=== PATIENT | female | born 1980 | race Two or more races ===

== ENCOUNTER 2017-12-19 15:25 | Inpatient (IN) | payer OTHER ==
--- NOTE | 2017-12-19 16:38 | PDOC ---
History of Present Illness - General History Source: Patient Exam Limitations: Intoxication - History of Present Illness Initial Comments: 12/19/17 17:05 The patient is a 37 year old female, with a significant past medical history of polysubstance abuse (Alcohol[hard liquor] , Cocaine, and Marijuana) and pancreatitis, who presents to the emergency department for intoxication since earlier today. The patient reports multiple emetic episodes, bloody in nature, which she describes as coffee grounds. Patient reports associated abdominal pain , nausea, and constipation. Patient states her last drink was this morning. Patient reports she has been on Methadone, and would like to go to detox. Patient denies any history of esophageal varices or upper GI bleeds. Patient denies any fever, chills, cough, or headache. Patient reports she has been sleeping a lot during the past couple of days. She denies any chest pain, shortness of breath, diaphoresis, or palpitations. She denies any dysuria, hematuria, frequency, or urgency. Allergies: NKDA Past Surgical History: Hip replacements Social History: ETOH abuse. Methadone and Marijuana use. <Robbie Cabrera - Last Filed: 12/19/17 17:07> <Nicole Melendez - Last Filed: 12/19/17 20:15> - General Chief Complaint: Alcohol intoxication Stated Complaint: Alcohol intoxication Time Seen by Provider: 12/19/17 16:38 Past History <Robbie Cabrera - Last Filed: 12/19/17 17:07> - Past Medical History Anemia: No Asthma: No Cancer: No Cardiac Disorders: No CVA: No COPD: No CHF: No Dementia: No Diabetes: No GI Disorders: No Disorders: No HTN: No Hypercholesterolemia: No Kidney Stones: No Liver Disease: No Seizures: No Thyroid Disease: No - Surgical History Abdominal Surgery: No Appendectomy: No Cardiac Surgery: No Cholecystectomy: No Lung Surgery: No Neurologic Surgery: No Orthopedic Surgery: Yes (s/p left hip surgery in 2011) - Reproductive History PID: No - Immunization History Immunization Up to Date: No - Suicide/Smoking/Psychosocial Hx Smoking History: Current every day smoker Have you smoked in the past 12 months: Yes Number of Cigarettes Smoked Daily: 20 Cigars Per Day: 0 Information on smoking cessation initiated: No 'Breaking Loose' booklet given: 07/12/13 Hx Alcohol Use: No Drug/Substance Use Hx: No Substance Use Type: Alcohol, Cocaine, Marijuana, Prescribed Hx Substance Use Treatment: Yes <Nicole Melendez - Last Filed: 12/19/17 20:15> - Past Medical History Allergies/Adverse Reactions: Allergies Allergy/AdvReac Type Severity Reaction Status Date / Time No Known Allergies Allergy Verified 12/19/17 15:55 Home Medications: Ambulatory Orders NK [No Known Home Medication] 12/19/17 Review of Systems - Review of Systems Able to Perform ROS?: Yes Comments:: 12/19/17 17:07 GENERAL/CONSTITUTIONAL: +Intoxicated. No fever or chills. No weakness. HEAD, EYES, EARS, NOSE AND THROAT: No change in vision. No ear pain or discharge. No sore throat. CARDIOVASCULAR: No chest pain or shortness of breath. RESPIRATORY: +Hemoptysis. No cough or wheezing. GASTROINTESTINAL: +Abdominal pain, nausea, vomiting. No diarrhea or constipation. GENITOURINARY: No dysuria, frequency, or change in urination. MUSCULOSKELETAL: No joint or muscle swelling or pain. No neck or back pain. SKIN: No rash NEUROLOGIC: No headache, vertigo, loss of consciousness, or change in strength/ sensation. ENDOCRINE: No increased thirst. No abnormal weight change. HEMATOLOGIC/LYMPHATIC: No anemia, easy bleeding, or history of blood clots. ALLERGIC/IMMUNOLOGIC: No hives or skin allergy. <Robbie Cabrera - Last Filed: 12/19/17 17:07> *Physical Exam - Vital Signs Last Vital Signs Temp Pulse Resp BP Pulse Ox 97.6 F 81 16 113/77 97 12/19/17 15:52 12/19/17 15:52 12/19/17 15:52 12/19/17 15:52 12/19/17 15:52 - Physical Exam Comments: 12/19/17 17:08 GENERAL: +Intoxicated, but awake, alert, and fully oriented, in no acute distress HEAD: No signs of trauma EYES: PERRLA, EOMI, sclera anicteric, conjunctiva clear ENT: +Tongue fasiculations. +Dry mucosa. Auricles normal inspection, hearing grossly normal, nares patent. NECK: Normal ROM, supple, no lymphadenopathy, JVD, or masses LUNGS: Breath sounds equal, clear to auscultation bilaterally. No wheezes, and no crackles HEART: Regular rate and rhythm, normal S1 and S2, no murmurs, rubs or gallops ABDOMEN: Soft, nontender, normoactive bowel sounds. No guarding, no rebound. No masses EXTREMITIES: Normal range of motion, no edema. No clubbing or cyanosis. No cords, erythema, or tenderness NEUROLOGICAL: Cranial nerves II through XII grossly intact. Normal speech, normal gait SKIN: Warm, Dry, normal turgor, no rashes or lesions noted. <Robbie Cabrera - Last Filed: 12/19/17 17:07> - Vital Signs Last Vital Signs Temp Pulse Resp BP Pulse Ox 97.6 F 81 16 113/77 97 12/19/17 15:52 12/19/17 15:52 12/19/17 15:52 12/19/17 15:52 12/19/17 15:52 <Nicole Melendez - Last Filed: 12/19/17 20:15> ED Treatment Course - LABORATORY CBC & Chemistry Diagram: 12/19/17 17:30 12/19/17 17:30 <Nicole Melendez - Last Filed: 12/19/17 20:15> Medical Decision Making - Medical Decision Making 12/19/17 19:44 Pt presents to the ED complaining of epigastric pain, nausea and vomiting. History of chronic ETOH abuse. + tenderness in the epigastrium on my exam. Labs checked to evaluate for alcoholic hepatitis, biliary disease and pancreatitis, and show elevated lipase consistent with pancreatitis. Will admit to medicine for pancreatitis. Will check RUQ US. <Nicole Melendez - Last Filed: 12/19/17 20:15> *DC/Admit/Observation/Transfer - Attestations Scribe Attestion: 12/19/17 17:05 Documentation prepared by Robbie Cabrera, acting as medical or surgical instrument maker for Nicole Melendez MD. <Robbie Cabrera - Last Filed: 12/19/17 17:07> - Discharge Dispostion Admit: Yes <Nicole Melendez - Last Filed: 12/19/17 20:15> Diagnosis at time of Disposition: Pancreatitis Qualifiers: Chronicity: acute Pancreatitis type: alcohol induced Acute pancreatitis complication: unspecified Qualified Code(s): K85.20 - Alcohol induced acute pancreatitis without necrosis or infection - Discharge Dispostion Condition at time of disposition: Good - Referrals Referrals: ON STAFF,NOT [Primary Care Provider] - - Patient Instructions - Post Discharge Activity
[2017-12-19] MEDS ORDERED: chlordiazePOXIDE HCL 25 MG CAPSULE PO ONE (17:02)
[2017-12-19] MEDS ORDERED: chlordiazePOXIDE HCL 25 MG CAPSULE ONE (17:31)
[2017-12-19 17:38] LABS: EOS % 0.1 % (0-4.5); HEMATOCRIT 50.1 % (32.4-45.2); HEMOGLOBIN 16.5 GM/dL (10.7-15.3); LYMPH % 41.7 % (8-40); MCH 30.6 pg (25.7-33.7); MCHC 32.9 g/dl (32.0-36.0); MEAN CELL VOLUME 92.9 fl (80-96); MEAN PLT VOLUME 8.6 fl (7.5-11.1); MONO % 7.8 % (3.8-10.2); NEUT % 49.4 % (42.8-82.8); PLATELET COUNT 137 K/MM3 (134-434); RBC 5.39 M/mm3 (3.60-5.2); RDW 14.6 % (11.6-15.6); WHITE BLOOD COUNT 3.3 K/mm3 (4.0-10.0)
[2017-12-19 18:10] LABS: ALBUMIN 4.8 g/dl (3.4-5.0); ALK PHOS 114 U/L (45-117); ANION GAP 13 (8-16); BILIRUBIN,TOTAL 0.7 mg/dL (0.2-1.0); BLOOD UREA NITROGEN 9 mg/dL (7-18); CALCIUM 8.8 mg/dL (8.5-10.1); CHLORIDE 95 mmol/L (98-107); CO2 28 mmol/L (21-32); CREATININE 0.6 mg/dL (0.55-1.02); GLUCOSE,RANDOM 68 mg/dL (74-106); POTASSIUM 3.8 mmol/L (3.5-5.1); SGPT/ALT 144 U/L (12-78); SODIUM 136 mmol/L (136-145); TOT PROT 9.5 g/dl (6.4-8.2)
[2017-12-19 18:11] LABS: LIPASE 2053 U/L (73-393); SGOT/AST 503 U/L (15-37)
[2017-12-19] MEDS ORDERED: HYDROmorphone HCL CARPU-JECT 1 MG/1 ML DISP.SYRIN IVPUSH ONE (18:20)
--- NOTE | 2017-12-19 19:34 | PN ---
Teaching Attending Note Name of Resident: Fausto Zamora ATTENDING PHYSICIAN STATEMENT I saw and evaluated the patient. I reviewed the resident's note and discussed the case with the resident. I agree with the resident's findings and plan as documented. SUBJECTIVE: Sent from detox for intoxication and patient c/o abdominal pain, coffee ground vomitus and epigastric abdominal pain. OBJECTIVE: GEN: Alert and oriented times 3, anxious HEENT: PERRLA, EOMI, MMM CVS:RRR, no M/G/R LUNGS: CTA ABD: Soft, NT, BS+ Ext:nl rom, nl gait Neuro:Cn2-12 intact CBCD WBC 3.3 K/mm3 (4.0-10.0) L D 12/19/17 17:30 RBC 5.39 M/mm3 (3.60-5.2) H D 12/19/17 17:30 Hgb 16.5 GM/dL (10.7-15.3) H D 12/19/17 17:30 Hct 50.1 % (32.4-45.2) H D 12/19/17 17:30 MCV 92.9 fl (80-96) 12/19/17 17:30 MCHC 32.9 g/dl (32.0-36.0) 12/19/17 17:30 RDW 14.6 % (11.6-15.6) 12/19/17 17:30 Plt Count 137 K/MM3 (134-434) D 12/19/17 17:30 MPV 8.6 fl (7.5-11.1) 12/19/17 17:30 CMP Sodium 136 mmol/L (136-145) 12/19/17 17:30 Potassium 3.8 mmol/L (3.5-5.1) 12/19/17 17:30 Chloride 95 mmol/L (98-107) L 12/19/17 17:30 Carbon Dioxide 28 mmol/L (21-32) 12/19/17 17:30 Anion Gap 13 (8-16) 12/19/17 17:30 BUN 9 mg/dL (7-18) 12/19/17 17:30 Creatinine 0.6 mg/dL (0.55-1.02) 12/19/17 17:30 Creat Clearance w eGFR > 60 (>60) 12/19/17 17:30 Random Glucose 68 mg/dL (74-106) L 12/19/17 17:30 Calcium 8.8 mg/dL (8.5-10.1) 12/19/17 17:30 Total Bilirubin 0.7 mg/dL (0.2-1.0) D 12/19/17 17:30 AST 503 U/L (15-37) H 12/19/17 17:30 ALT 144 U/L (12-78) H 12/19/17 17:30 Alkaline Phosphatase 114 U/L (45-117) 12/19/17 17:30 Total Protein 9.5 g/dl (6.4-8.2) H 12/19/17 17:30 Albumin 4.8 g/dl (3.4-5.0) 12/19/17 17:30 ASSESSMENT AND PLAN: Abdominal pain pancreatitis NPO, IVF Banana bag, Zofran, Morphine 2mg PRN,, patient counselled on alcohol cessation. Continue care as per H&P.
[2017-12-19] MEDS ORDERED: SODIUM CHLORIDE 1,000 ML IV SCH (20:30)
--- NOTE | 2017-12-19 20:44 | HP ---
CHIEF COMPLAINT: " sent from [facility] for evaluation of abdominal pain" PCP: Name unknown, goes to [address] HISTORY OF PRESENT ILLNESS: Patient is a 37 year old female sent from [facility] for evaluation of abdominal pain. As per the patient, she went to [facility] for alcohol detox. Complaints of abdominal pain x 2 days, epigastric, burning in nature, 9/10 in intensity, non radiating. It was associated with nausea and few episodes of vomiting. Vomitus contained mainly food particles, non bloody, non projectile. Patient reports she actively drinks alcohol, last drink was this morning 1/2 a bottle of vodka. Also states that she has had 4 episodes of pancreatitis, last pancreatitis was in 2017. Denies chest pain, sob, cough, palpitation, fever, chills, rigors, sweating. Bowel/Bladder habit normal. Sleep/Appetite disturbed. As per [facility] notes (12/19/17) Currently she is on Methadone 40mg ER course was notable for: (1) Afebrile, hemodynamically stable, Lipase 2052, U tox positive for marijuana , benzo, methadone, alcohol level: 123 (2) Abdominal USG (3) Librium and Reglan Recent Travel: PAST MEDICAL HISTORY: opioid dependence. chronci alcoholism. cocaine dependence. cannabis dependence. bipolar disorder, h/o pancreatitis 4 times, ( heart attack x 2 as per the patient but unsure), Hypertension PAST SURGICAL HISTORY: (s/p left hip surgery in 2011) Social History: Smoking: Started smoking at age 17 yrs, active smoker Alcohol: Actively drinking, last drink was this morning 1/2 a bottle of vodka. Drugs: started smoking marijuana at age 12, actively smokes marijuana. Used to inhale cocaine (doesn't want to mention the last time she took) Family History: Non contributory Allergies No Known Allergies Allergy (Verified 12/19/17 15:55) HOME MEDICATIONS: Home Medications Medication Instructions Recorded NK [No Known Home Medication] 12/19/17 REVIEW OF SYSTEMS CONSTITUTIONAL: Absent: fever, chills, diaphoresis, generalized weakness, malaise, loss of appetite, weight change HEENT: Absent: rhinorrhea, nasal congestion, throat pain, throat swelling, difficulty swallowing, mouth swelling, ear pain, eye pain, visual changes CARDIOVASCULAR: Absent: chest pain, syncope, palpitations, irregular heart rate, lightheadedness , peripheral edema RESPIRATORY: Absent: cough, shortness of breath, dyspnea with exertion, orthopnea, wheezing, stridor, hemoptysis GASTROINTESTINAL: Present: abdominal pain, abdominal distension, nausea, vomiting Absent: diarrhea, constipation, melena, hematochezia GENITOURINARY: Absent: dysuria, frequency, urgency, hesitancy, hematuria, flank pain, genital pain MUSCULOSKELETAL: Absent: myalgia, arthralgia, joint swelling, back pain, neck pain SKIN: Absent: rash, itching, pallor HEMATOLOGIC/IMMUNOLOGIC: Absent: easy bleeding, easy bruising, lymphadenopathy, frequent infections ENDOCRINE: Absent: unexplained weight gain, unexplained weight loss, heat intolerance, cold intolerance NEUROLOGIC: Absent: headache, focal weakness or paresthesias, dizziness, unsteady gait, seizure, mental status changes, bladder or bowel incontinence PSYCHIATRIC: Absent: anxiety, depression, suicidal or homicidal ideation, hallucinations. PHYSICAL EXAMINATION Vital Signs - 24 hr 12/19/17 12/19/17 15:52 18:47 Temperature 97.6 F 98.6 F Pulse Rate 81 Pulse Rate [ 86 Left Apical] Respiratory 16 16 Rate Blood Pressure 113/77 Blood Pressure 139/69 [Left Arm] O2 Sat by Pulse 97 95 Oximetry (%) GENERAL: Patient is a young female, sleeping, arousable, Awake, alert, and fully oriented, in no acute distress. HEAD: Normal with no signs of trauma. EYES: EOM intact, no pallor or icterus. EARS, NOSE, THROAT: Ears normal. Dry mucous membranes. NECK: Supple. LUNGS: B/L Breath sounds equal, clear to auscultation bilaterally. No wheezes, and no crackles. No accessory muscle use. HEART: Regular rate and rhythm, normal S1 and S2 without murmur. ABDOMEN: Soft, tenderness in the epigastric area, guarding +, rigidity +, not distended, normoactive bowel sounds. No hepatomegaly or splenomegaly. MUSCULOSKELETAL: Normal range of motion at all joints. No bony deformities or tenderness. No CVA tenderness. UPPER EXTREMITIES: 2+ pulses, warm, well-perfused. No cyanosis. No clubbing. No peripheral edema. LOWER EXTREMITIES: 2+ pulses, warm, well-perfused. No calf tenderness. No peripheral edema. NEUROLOGICAL: No facial droop, Cranial nerves II-XII intact. Normal speech. Gait not observed. PSYCHIATRIC: Uncooperative, aggressive and angry. Poor eye contact. SKIN: Warm, dry, normal turgor, no rashes or lesions noted, normal capillary refill. Laboratory Results - last 24 hr 12/19/17 12/19/17 12/19/17 17:30 17:30 17:30 WBC 3.3 L D RBC 5.39 H D Hgb 16.5 H D Hct 50.1 H D MCV 92.9 MCH 30.6 MCHC 32.9 RDW 14.6 Plt Count 137 D MPV 8.6 Neutrophils % 49.4 Lymphocytes % 41.7 H D Monocytes % 7.8 Eosinophils % 0.1 D Basophils % 1.0 Sodium 136 Potassium 3.8 Chloride 95 L Carbon Dioxide 28 Anion Gap 13 BUN 9 Creatinine 0.6 Creat Clearance w eGFR > 60 Random Glucose 68 L Calcium 8.8 Total Bilirubin 0.7 D AST 503 H ALT 144 H Alkaline Phosphatase 114 Total Protein 9.5 H Albumin 4.8 Lipase 2053 H Beta HCG, Quant < 1.0 ASSESSMENT/PLAN: Patient is a 37 year old female with past medical history of Polysubstance abuse (opioid dependence, chronic alcoholism, h/o cocaine dependence; cannabis dependence; bipolar disorder not on meds, sent from [facility] for evaluation of abdominal pain. # Acute pancreatitis c/o epigastric pain, nausea, vomiting. H/O pancreatitis 4 times, last pancreatitis was on 2016. On arrival, she was hemodynamically stable, Lipase 2053 Admit in Med-Surg/Inpatient NPO IV NS @ 100 mls/hr IV Morphine 1mg Q4H PRN 1 banana bag to be given followed by NS @ 100mls.hr Abdominal USG: Small volume of sludge within the GB. No evidence of cholelithiasis or acute cholecystitis Dilated CBD: 8-9 mm with no significant Intrahepatic biliary ductal dilatation. Unclear if its due to acute pancreatitis or other pathology Mild dilatation of pancreatic duct measuring 3mm. Would consider CT abdomen or MRCP to evaluate further. # Alcohol intoxication: Alcohol level 431.8 No signs of withdrawal Librium protocol cannot be started due to elevated liver enzymes Ativan 2mg PO Q4H PRN and Ativan 2mg IV Q2H PRN for withdrawals # Elevated liver enzymes Likely due to alcohol abuse Avoid hepatotoxic drugs Repeat CMP in am. # Polysubstance abuse Urine toxicology positive for Methadone, benzo and Marijuana To start Methadone once its confirmed from [facility] Dr. Daley consult requested Once stable, to transfer to detox for further management # FEN IV NS @ 100mls/hr Electrolytes WNL NPO # Prophylaxis For DVT: On Heparin 5000 IU sq TID For GI: Not indicated # Code Status: Full Code # Dispo: Admitted in Med-Surg. Illness, Investigation and Plan of care explained to the patient. She verbalized understanding. Case discussed with Dr. Navarro. Visit type - Emergency Visit Emergency Visit: Yes ED Registration Date: 12/19/17 Care time: The patient presented to the Emergency Department on the above date and was hospitalized for further evaluation of their emergent condition. - New Patient This patient is new to me today: Yes Date on this admission: 12/19/17 - Critical Care Critical Care patient: No
[2017-12-19] MEDS ORDERED: FOLIC ACID INJECTION - 1 MG, THIAMINE HCL 100 MG, MULTIVIT INJECTION ADULT 10 ML in SOD... IVPB ONE (21:15)
[2017-12-19 21:29] LABS: COCAINE, UR NEGATIVE ng/ml (CUTOFF=300); OPIATES, URI NEGATIVE ng/ml (CUTOFF=300); PHENCYCLIDINE,URINE NEGATIVE ng/ml (CUTOFF=25); URINE AMPHETAMINES NEGATIVE ng/ml (CUTOFF=500); URINE BARBITURATES NEGATIVE ng/ml (CUTOFF=200)
[2017-12-19 21:31] LABS: METHADONE, UR POSITIVE ng/ml (CUTOFF=300); URINE BENZODIAZEPINES POSITIVE ng/ml (CUTOFF=200)
[2017-12-19 23:45] VITALS: BMI 18.9
[2017-12-19] MEDS: MORPHINE SULFATE 10 MG/1 ML *VIAL IVPUSH PRN (23:48)
[2017-12-20] MEDS ORDERED: METOCLOPRAMIDE HCL INJECTION 10 MG/2 ML VIAL IVPUSH ONE (01:36)
[2017-12-20] MEDS: MORPHINE SULFATE 10 MG/1 ML *VIAL IVPUSH PRN ×2 (03:56→07:56)
[2017-12-20] MEDS ORDERED: SODIUM CHLORIDE 1,000 ML IV SCH ×2 (04:00→11:29)
[2017-12-20] MEDS ORDERED: chlordiazePOXIDE HCL 25 MG CAPSULE PO PRN ×2 (04:05→10:35)
[2017-12-20] MEDS ORDERED: PNEUMOC 13-VAL CONJ-DIP CRM/PF 0.5 ML DISP.SYRIN IM ONE (05:18)
[2017-12-20] MEDS: HEPARIN NA (PORCINE) 5,000 UNITS/ML 1ML VIAL SQ SCH ×3 (06:44→22:01)
[2017-12-20] MEDS ORDERED: LORazepam 1 MG TABLET PO PRN (06:51)
[2017-12-20] MEDS ORDERED: ONDANSETRON 4 MG/2 ML VIAL IVPB PRN (06:52)
[2017-12-20] MEDS ORDERED: PT OWN MED DRAWER 7, Y5N ONE (07:00)
[2017-12-20 07:39] LABS: HEMATOCRIT 41.9 % (32.4-45.2); HEMOGLOBIN 13.6 GM/dL (10.7-15.3); MCH 30.7 pg (25.7-33.7); MCHC 32.5 g/dl (32.0-36.0); MEAN CELL VOLUME 94.6 fl (80-96); MEAN PLT VOLUME 8.6 fl (7.5-11.1); PLATELET COUNT 103 K/MM3 (134-434); RBC 4.43 M/mm3 (3.60-5.2); RDW 14.3 % (11.6-15.6); WHITE BLOOD COUNT 3.3 K/mm3 (4.0-10.0)
[2017-12-20 08:22] LABS: ANION GAP 18 (8-16); BLOOD UREA NITROGEN 8 mg/dL (7-18); CALCIUM 8.2 mg/dL (8.5-10.1); CHLORIDE 97 mmol/L (98-107); CO2 23 mmol/L (21-32); CREATININE 0.5 mg/dL (0.55-1.02); GLUCOSE,RANDOM 57 mg/dL (74-106); MAGNESIUM 1.7 mg/dL (1.8-2.4); PHOSPHOROUS 3.8 mg/dL (2.5-4.9); POTASSIUM 3.9 mmol/L (3.5-5.1); SODIUM 138 mmol/L (136-145)
[2017-12-20 09:39] LABS: ALBUMIN 4.2 g/dl (3.4-5.0); SGOT/AST 354 U/L (15-37); TOT PROT 8.1 g/dl (6.4-8.2)
[2017-12-20 09:42] LABS: BILIRUBIN,DIRECT 0.4 mg/dL (0.0-0.2); SGPT/ALT 118 U/L (12-78)
[2017-12-20 09:43] LABS: ALK PHOS 92 U/L (45-117)
[2017-12-20] MEDS ORDERED: FLU VACCINE QUAD 60 MCG/0.5 ML (MDV 17-18) IM ONE (10:00)
[2017-12-20] MEDS ORDERED: PNEUMOCOCCAL 23 VACCINE 0.5 ML VIAL IM ONE (10:00)
--- NOTE | 2017-12-20 10:31 | CONSULT ---
Consult Detox [facility] Reason for Current Admission/Consult: polysubstance use Referred by:: Adelfo lizarraga - History History of Present Illness: 37 yo f with h/o opioid use disorder on MMTP 40mg, chronic alcoholism went to [facility] for detox was found severly intoxicated and sent to [facility] for evlauation admitted with dx abdo pain 2/2 pancreatitis. was started on libirum detox which she is tolerating well, methadone 40mg daily and oxycodoen 10m q4h for pain given. patient ambulatingw ithout assistance, startd full diet requesting rehab when stable. - History Source History Provided By: Patient, Medical Record, Caregiver - Alcohol/Substance Use Hx Alcohol Use: Yes Hx Substance Use: Yes (methadone 40mg daily) Hx Substance Use Treatment: Yes (MMTP) - Current Drug/Alcohol Use Alcohol Route: Oral Frequency: Daily Amount used: 1 pint spirits daily Age of first use: 16 Date of Last Use: 12/20/17 - Past Medical History ...LMP: 05/26/13 - Significant Medical Findings: 37 yo f admitteed with abdo pain 2/2 alcoholic pqancreatitis with some residual abdo pain, on oxycodoen 10mg q4h, libirum detox showing no signs of withdrawl Assessment Plan - Diagnosis (1) Alcohol dependence with uncomplicated withdrawal Status: Acute (2) Opioid dependence on agonist therapy Status: Acute (3) Pancreatitis Status: Acute Qualifiers: Chronicity: acute Pancreatitis type: alcohol induced Acute pancreatitis complication: unspecified Qualified Code(s): K85.20 - Alcohol induced acute pancreatitis without necrosis or infection (4) Cannabis dependence Status: Active (5) Cocaine dependence Status: Active (6) Dehydration Status: Acute (7) Elevated LFTs Status: Acute - Plan Plan: Recommend: 1. verify methadone dose with program and restart daily methadone, ask last date of medication and dose. if she has had her usual methadone dose within the last 3 dasy may continue (reportedly as per chart 40mg daily), if more than 3 days decrease to 30mg daily. 2. alcohol dependence with withdrawal syndrome - libirum detox ordered 3. benzodiazepine dependence with withdrawal syndrome? - libirum detox ordered 4. alcoholic pancreatitis - fluids, iv support, mvi, thiamine ordered, pain control, can give po medications in a drug user if she is able to take them, do not need to give iv medications 5. nausea - zofran odt ordered 6. elevated lfts trending down, comfortable with giving libirum. Russ Daley MD [phone] - Medication Detox Regimen/Protocol: Librkavita
[2017-12-20] MEDS ORDERED: ONDANSETRON *ODT* 4 MG TABLET SL PRN (10:34)
[2017-12-20] MEDS ORDERED: ONDANSETRON *ODT* 4 MG TABLET SL ONE (10:45)
[2017-12-20] MEDS ORDERED: chlordiazePOXIDE HCL 25 MG CAPSULE PO SCH (11:00)
[2017-12-20] MEDS: chlordiazePOXIDE HCL 25 MG CAPSULE PO SCH ×3 (11:19→22:01)
--- NOTE | 2017-12-20 11:22 | PN ---
Progress Note (short form) - Note Progress Note: c/o nausea and abdominal pain. has been dry heaving all morning. states she had 3 episodes of pancreatitis in the past always incited by ETOH. never seen GI doctor for her episodes and was never told she had gallstones in the past. last drink was yesterday. drinks a large bottle daily (750cc). denies CP, SOB, fever , chills, C/D, auditory/visual hallucinations Current Medications Generic Name Dose Route Start Last Admin Trade Name Freq PRN Reason Stop Dose Admin Chlordiazepoxide HCl 50 mg 12/20/17 11:00 Librium - PO 12/21/17 05:01 [id number] KAELA Chlordiazepoxide HCl 25 mg 12/21/17 11:00 Librium - PO 12/22/17 05:01 [id number] KAELA Chlordiazepoxide HCl 15 mg 12/22/17 11:00 Librium - PO 12/23/17 05:01 [id number] KAELA Chlordiazepoxide HCl 25 mg 12/20/17 10:35 Librium - PO 12/23/17 10:34 Q4H PRN WITHDRAWAL(CONT SUBST) Heparin Sodium (Porcine) 5,000 unit 12/20/17 06:00 12/20/17 06:44 Heparin - SQ 5,000 unit TID KAELA Administration Sodium Chloride 1,000 mls @ 100 mls/hr 12/20/17 04:00 12/20/17 09:56 Normal Saline - IV 100 mls/hr ASDIR KAELA Administration Ondansetron HCl 8 mg 12/20/17 10:34 Zofran Odt - SL Q6H PRN NAUSEA AND/OR VOMITING Oxycodone HCl 10 mg 12/20/17 10:43 Roxicodone - PO Q4H PRN PAIN LEVEL 6-10 Multivit/Folic Acid/Iron 1 tab 12/21/17 10:00 Vitamins (Sjr) - PO DAILY KAELA Thiamine HCl 100 mg 12/20/17 22:00 Vitamin B1 - PO HS KAELA Zolpidem Tartrate 10 mg 12/20/17 10:33 Ambien - PO HS PRN INSOMNIA Last Vital Signs Temp Pulse Resp BP Pulse Ox 98.4 F 75 18 120/74 95 12/20/17 09:02 12/20/17 09:02 12/20/17 09:02 12/20/17 09:02 12/20/17 08:52 General mild distress CV S1 S2 RRR no murmur/rub/gallop Lungs CTA B/L no wheezing/rales/rhonchi Abdomen soft +epigastric and RLQ tenderness no rebound or guarding Extremities+ tremors. no pedal edema CBCD WBC 3.3 K/mm3 (4.0-10.0) L 12/20/17 06:30 RBC 4.43 M/mm3 (3.60-5.2) 12/20/17 06:30 Hgb 13.6 GM/dL (10.7-15.3) D 12/20/17 06:30 Hct 41.9 % (32.4-45.2) D 12/20/17 06:30 MCV 94.6 fl (80-96) 12/20/17 06:30 MCHC 32.5 g/dl (32.0-36.0) 12/20/17 06:30 RDW 14.3 % (11.6-15.6) 12/20/17 06:30 Plt Count 103 K/MM3 (134-434) L D 12/20/17 06:30 MPV 8.6 fl (7.5-11.1) 12/20/17 06:30 CMP Sodium 138 mmol/L (136-145) 12/20/17 06:30 Potassium 3.9 mmol/L (3.5-5.1) 12/20/17 06:30 Chloride 97 mmol/L (98-107) L 12/20/17 06:30 Carbon Dioxide 23 mmol/L (21-32) 12/20/17 06:30 Anion Gap 18 (8-16) H 12/20/17 06:30 BUN 8 mg/dL (7-18) 12/20/17 06:30 Creatinine 0.5 mg/dL (0.55-1.02) L 12/20/17 06:30 Creat Clearance w eGFR > 60 (>60) 12/19/17 17:30 Random Glucose 57 mg/dL (74-106) L 12/20/17 06:30 Calcium 8.2 mg/dL (8.5-10.1) L 12/20/17 06:30 Total Bilirubin 1.0 mg/dL (0.2-1.0) D 12/20/17 06:30 AST 354 U/L (15-37) H 12/20/17 06:30 ALT 118 U/L (12-78) H 12/20/17 06:30 Alkaline Phosphatase 92 U/L (45-117) 12/20/17 06:30 Total Protein 8.1 g/dl (6.4-8.2) 12/20/17 06:30 Albumin 4.2 g/dl (3.4-5.0) 12/20/17 06:30 A/P 37yo F with PMH continuous polysubstance abuse sent from [facility] due to abdominal pain and vomiting and found to have acute pancreatitis 1. Acute Pancreatitis- likely due to ETOH. low concern for retain CBD stone as LFT more consistent due to ETOH use. U/s showing dilated pancreatic duct. will need to repeat imaging. cont NPO, will switch IVF to LR at 175cc/H. pain control with percocet 2. ETOH withdrawal- CIWA 9. start on librium protocol. no hx of ETOH withdrawal seziure. counseled on need for abstinence. verbalized understanding and desire to remain sober. cont thiamine/folate/MVI 3. Methadone program- dose confirmed. Methadone 40mg. last dose received was 12/19 4. Acute transaminitis- more likely due to ETOH as AST>ALT, less likely from cholestasis picutre. now improving. U/s showing fatty liver. will monitor for now 5. Hypophosphatemia- Neutraphos 6. Hypomagnesemia- Mg 2g 7. Polycytehmia- due to dehydration. resolved 8. Leukopenia - due to ETOH. stable 9. DVT ppx- Hep sq Visit type - Emergency Visit Emergency Visit: Yes ED Registration Date: 12/19/17 Care time: The patient presented to the Emergency Department on the above date and was hospitalized for further evaluation of their emergent condition. - New Patient This patient is new to me today: Yes Date on this admission: 12/20/17 - Critical Care Critical Care patient: No - Discharge Referral Referred to [facility] No
[2017-12-20] MEDS ORDERED: METHADONE HCL 40 MG DISPERSABLE TABLET PO ONE (12:00)
[2017-12-20] MEDS: oxyCODONE HCL 5 MG TABLET PO PRN ×2 (12:12→22:10)
[2017-12-20] MEDS ORDERED: NAPH,MB-DB/K PH,MBDB POWDER PACKET PO ONE (12:30)
[2017-12-20] MEDS ORDERED: MAGNESIUM 2GM/50ML STERILE WATER IVPB IVPB ONE (13:00)
[2017-12-20 14:35] LABS: URINE APPEARANCE CLEAR; URINE BILIRUBIN NEGATIVE (NEGATIVE); URINE BLOOD NEGATIVE (NEGATIVE); URINE COLOR STRAW; URINE GLUCOSE (UA) NEGATIVE (NEGATIVE); URINE KETONE 2+ (NEGATIVE); URINE LEUK ESTERASE NEGATIVE (NEGATIVE); URINE NITRITE NEGATIVE (NEGATIVE); URINE PROTEIN NEGATIVE (NEGATIVE); URINE UROBILINOGEN NEGATIVE mg/dL (0.2-1.0)
[2017-12-20] MEDS: LACTATED RINGERS SOLUTION 1,000 ML/1,000 ML INFUS.BAG IV SCH ×2 (16:45→23:27)
[2017-12-20] MEDS: THIAMINE HCL 100 MG TABLET (FP) PO SCH (22:01)
[2017-12-20] MEDS: ZOLPIDEM TARTRATE 5 MG TABLET PO PRN (23:25)
[2017-12-21] MEDS: oxyCODONE HCL 5 MG TABLET PO PRN ×4 (03:26→21:38)
[2017-12-21] MEDS: LACTATED RINGERS SOLUTION 1,000 ML/1,000 ML INFUS.BAG IV SCH ×4 (05:37→23:09)
[2017-12-21] MEDS: HEPARIN NA (PORCINE) 5,000 UNITS/ML 1ML VIAL SQ SCH ×3 (05:38→21:37)
[2017-12-21] MEDS: METHADONE HCL 40 MG DISPERSABLE TABLET PO SCH (05:38)
[2017-12-21] MEDS: chlordiazePOXIDE HCL 25 MG CAPSULE PO SCH ×4 (05:39→23:02)
[2017-12-21 08:34] LABS: ALBUMIN 3.8 g/dl (3.4-5.0); ANION GAP 15 (8-16); BILIRUBIN,TOTAL 1.3 mg/dL (0.2-1.0); BLOOD UREA NITROGEN 6 mg/dL (7-18); CALCIUM 8.9 mg/dL (8.5-10.1); CHLORIDE 91 mmol/L (98-107); CO2 22 mmol/L (21-32); CREATININE 0.7 mg/dL (0.55-1.02); GLUCOSE,RANDOM 64 mg/dL (74-106); MAGNESIUM 1.8 mg/dL (1.8-2.4); PHOSPHOROUS 2.5 mg/dL (2.5-4.9); POTASSIUM 4.4 mmol/L (3.5-5.1); SGOT/AST 168 U/L (15-37); SGPT/ALT 93 U/L (12-78); SODIUM 128 mmol/L (136-145); TOT PROT 7.7 g/dl (6.4-8.2)
[2017-12-21 08:35] LABS: ALK PHOS 88 U/L (45-117)
[2017-12-21 08:43] LABS: HEMOGLOBIN 13.4 GM/dL (10.7-15.3); MCH 30.5 pg (25.7-33.7); MCHC 32.6 g/dl (32.0-36.0); MEAN CELL VOLUME 93.6 fl (80-96); MEAN PLT VOLUME 9.6 fl (7.5-11.1); PLATELET COUNT 82 K/MM3 (134-434); RBC 4.38 M/mm3 (3.60-5.2); RDW 13.5 % (11.6-15.6); WHITE BLOOD COUNT 4.3 K/mm3 (4.0-10.0)
[2017-12-21] MEDS ORDERED: PT OWN MED DRAWER 7, Y5N ONE (09:26)
[2017-12-21] MEDS: PRENATAL VITAMINS W/ FOLIC ACID TABLET (FP) PO SCH ×2 (09:27→09:28)
--- NOTE | 2017-12-21 10:52 | PN ---
Teaching Attending Note Name of Resident: Lynda Johnson ATTENDING PHYSICIAN STATEMENT I saw and evaluated the patient. I reviewed the resident's note and discussed the case with the resident. I agree with the resident's findings and plan as documented. SUBJECTIVE:c/o diffuse body aches. very upset she has not eaten and does not understand why we are keeping food from her. admits to nausea but no vomiting. dneis CP, SOB, fever, chills, auditory/visual/tactile hallucinations OBJECTIVE: Last Vital Signs Temp Pulse Resp BP Pulse Ox 99.0 F 82 18 119/90 97 12/21/17 09:38 12/21/17 09:38 12/21/17 09:38 12/21/17 09:38 12/20/17 21:00 General mildly anxious CV S1 S2 RRR no murmur/rub/gallop Lungs CTA B/L no wheezing/rales/rhonchi Abdomen soft mild epigastric tenderness on deep palpation extremities tremor at rest ASSESSMENT AND PLAN: 37yo F with PMH continuous polysubstance abuse sent from [facility] due to abdominal pain and vomiting and found to have acute pancreatitis 1. Acute Pancreatitis- likely due to ETOH. low concern for retain CBD stone as LFT more consistent due to ETOH use. U/s showing dilated pancreatic duct. check MRCP. start clear liquid diet for now. cont LR. pain control with percocet 2. ETOH withdrawal- CIWA 9. on libirum, very anxious and agitated. on librium protocol. received extra dose last night. can give clonidine x1 for possible combination of withdrawals from opiates. cont thiamine/folate/MVI 3. Methadone program- dose confirmed. last dose received was 12/19 from facility. Methadone 40mg. 4. Acute transaminitis- more likely due to ETOH as AST>ALT, less likely from cholestasis picutre. now improving. U/s showing fatty liver. will monitor for now 5. Hypophosphatemia- resolved 6. Hypomagnesemia- resolved 7. Polycytehmia- due to dehydration. resolved 8. Leukopenia - due to ETOH. stable 9. thrombocytopenia- due to ETOH. no signs of bleeding. no indication for plt transfusion 10. DVT ppx- Hep sq 11. pt threatened to sign out AMA as she is in pain and wants to eat. counseled her on her medical condition and treatment. explained goal is not to make her pain free but goal is to make pain bareable. explained due to her medical condition and going through detox she is expected to be in pain. states she has a "tylenol allergy" when explored state she had no symptoms but was instructed to avoid due to her liver. explained this is not a true allergy.
[2017-12-21] MEDS ORDERED: chlordiazePOXIDE HCL 25 MG CAPSULE PO SCH (11:00)
[2017-12-21] MEDS ORDERED: cloNIDine HCL 0.1 MG TABLET PO ONE (11:37)
--- NOTE | 2017-12-21 12:41 | PN ---
Physical Exam: SUBJECTIVE: Patient seen and examined patient pacing around the room, very agitated, cursing, crying, voicing multiple complains about care. Has been verbally abusive to staff all night, bothering other patients. Demands IV dilaudid or morphine and state that po oxycodone is not enough. reports diffuse pain all over her body as well as excruciating pain at the site of her flu shot given yesterday. Asks to leave ama so she could go to another hospital for pain meds but later changes her mind. OBJECTIVE: Vital Signs Period Temp Pulse Resp BP Sys/Ferrell Pulse Ox Last 24 Hr 97.8 F-99.7 F 74-93 18-20 112-141/66-92 97 GENERAL: The patient is awake, alert, and fully oriented, in emotional distress. mildly diaphoretic HEAD: Normal with no signs of trauma. EYES: PERRL, extraocular movements intact, sclera anicteric, conjunctiva clear. No ptosis. ENT: moist mucous membranes. NECK: supple. LUNGS: Breath sounds equal, clear to auscultation bilaterally HEART: Regular rate and rhythm, S1, S2 ABDOMEN: Soft, nontender, nondistended, normoactive bowel sounds, no guarding, no rebound, no hepatosplenomegaly, no masses. EXTREMITIES: 2+ pulses, warm, well-perfused, no edema. NEUROLOGICAL: Cranial nerves II through XII grossly intact. Normal speech and observed. tremor in hands PSYCH: agitated mood SKIN: Warm, dry, several old bruises on upper arms Laboratory Results - last 24 hr 12/20/17 12/21/17 12/21/17 14:05 06:50 06:50 WBC 4.3 D RBC 4.38 Hgb 13.4 Hct 41.0 MCV 93.6 MCH 30.5 MCHC 32.6 RDW 13.5 Plt Count 82 L D MPV 9.6 D Sodium 128 L Potassium 4.4 Chloride 91 L Carbon Dioxide 22 Anion Gap 15 BUN 6 L Creatinine 0.7 Creat Clearance w eGFR > 60 Random Glucose 64 L Calcium 8.9 Phosphorus 2.5 Magnesium 1.8 Total Bilirubin 1.3 H D AST 168 H ALT 93 H Alkaline Phosphatase 88 Total Protein 7.7 Albumin 3.8 Urine Color Straw Urine Appearance Clear Urine pH 6.0 Ur Specific [place] 1.014 Urine Protein Negative Urine Glucose (UA) Negative Urine Ketones 2+ H Urine Blood Negative Urine Nitrite Negative Urine Bilirubin Negative Urine Urobilinogen Negative Ur Leukocyte Esterase Negative Active Medications Generic Name Dose Route Start Last Admin Trade Name Freq PRN Reason Stop Dose Admin Chlordiazepoxide HCl 25 mg 12/21/17 11:00 12/21/17 11:08 Librium - PO 12/22/17 05:01 25 mg [id number] KAELA Administration Chlordiazepoxide HCl 15 mg 12/22/17 11:00 Librium - PO 12/23/17 05:01 [id number] KAELA Chlordiazepoxide HCl 25 mg 12/20/17 10:35 12/21/17 03:32 Librium - PO 12/23/17 10:34 25 mg Q4H PRN Administration WITHDRAWAL(CONT SUBST) Heparin Sodium (Porcine) 5,000 unit 12/20/17 06:00 12/21/17 05:38 Heparin - SQ 5,000 unit TID KAELA Administration Lactated Ringer's 1,000 ml in 1,000 mls @ 175 mls/hr 12/20/17 11:45 12/21/17 12:19 Lactated Ringers Solution IV 175 mls/hr ASDIR KAELA Administration Methadone HCl 40 mg 12/21/17 06:00 12/21/17 05:38 Dolophine - PO 40 mg DAILY@0600 KAELA Administration Ondansetron HCl 8 mg 12/20/17 10:34 Zofran Odt - SL Q6H PRN NAUSEA AND/OR VOMITING Oxycodone HCl 10 mg 12/20/17 10:43 12/21/17 08:12 Roxicodone - PO 10 mg Q4H PRN Administration PAIN LEVEL 6-10 Multivit/Folic Acid/Iron 1 tab 12/21/17 10:00 12/21/17 09:28 Vitamins (Sjr) - PO Not Given DAILY [facility] Thiamine HCl 100 mg 12/20/17 22:00 12/20/17 22:01 Vitamin B1 - PO 100 mg HS KAELA Administration Zolpidem Tartrate 10 mg 12/20/17 10:33 12/20/17 23:25 Ambien - PO 10 mg HS PRN Administration INSOMNIA ASSESSMENT/PLAN: This is a 37 yo F with PMH of polysubstance abuse and EtOH pancreatitis, who presents from [facility] due to abdominal pain and vomiting Acute Pancreatitis -likely due to ETOH, however Abd US showed dilated CBD and PD w/o stones -consider MRCP. -advance diet to clears, LR @ 175, can decrease if patient tolerates PO -oxycodone for pain ETOH withdrawal -showing signs of withdrawal, no histor of SZ, CIWA 9. -continue libirum protocol, vitamins -Dr hakan brown Methadone program -continue Methadone 40mg Acute transaminitis -AST/ALT 168/93 trending down -appears ETOH related Worsening Hyponatremia -na 128, likley due to IVF -limit IVF once patient tolerates PO; trend NA FEN LR @ 175 monitor Na clears diet HEp sq Dispo M/S Problem List - Problems (1) Alcohol dependence with uncomplicated withdrawal Code(s): F10.230 - ALCOHOL DEPENDENCE WITH WITHDRAWAL, UNCOMPLICATED (2) Elevated LFTs Code(s): R79.89 - OTHER SPECIFIED ABNORMAL FINDINGS OF BLOOD CHEMISTRY (3) Opioid dependence on agonist therapy Code(s): F11.20 - OPIOID DEPENDENCE, UNCOMPLICATED (4) Pancreatitis Code(s): K85.90 - ACUTE PANCREATITIS WITHOUT NECROSIS OR INFECTION, UNSP Qualifiers: Chronicity: acute Pancreatitis type: alcohol induced Acute pancreatitis complication: unspecified Qualified Code(s): K85.20 - Alcohol induced acute pancreatitis without necrosis or infection (5) Alcohol dependence Code(s): F10.20 - ALCOHOL DEPENDENCE, UNCOMPLICATED (6) Cannabis dependence Code(s): F12.20 - CANNABIS DEPENDENCE, UNCOMPLICATED (7) Cocaine dependence Code(s): F14.20 - COCAINE DEPENDENCE, UNCOMPLICATED Visit type - Emergency Visit Emergency Visit: Yes ED Registration Date: 12/19/17 Care time: The patient presented to the Emergency Department on the above date and was hospitalized for further evaluation of their emergent condition. - New Patient This patient is new to me today: Yes Date on this admission: 12/21/17 - Critical Care Critical Care patient: No - Discharge Referral Referred to [facility] No
[2017-12-21] MEDS ORDERED: oxyCODONE HCL 5 MG TABLET PO ONE (18:15)
[2017-12-21] MEDS: THIAMINE HCL 100 MG TABLET (FP) PO SCH (21:37)
[2017-12-21] MEDS: ZOLPIDEM TARTRATE 5 MG TABLET PO PRN (23:10)
[2017-12-22] MEDS ORDERED: SENNOSIDES 8.6MG TABLET (FP) PO ONE (02:24)
[2017-12-22] MEDS: oxyCODONE HCL 5 MG TABLET PO PRN ×2 (03:57→09:01)
[2017-12-22] MEDS: METHADONE HCL 40 MG DISPERSABLE TABLET PO SCH (06:06)
[2017-12-22] MEDS: HEPARIN NA (PORCINE) 5,000 UNITS/ML 1ML VIAL SQ SCH ×2 (06:06→14:42)
[2017-12-22] MEDS: chlordiazePOXIDE HCL 25 MG CAPSULE PO SCH (06:06)
[2017-12-22] MEDS: LACTATED RINGERS SOLUTION 1,000 ML/1,000 ML INFUS.BAG IV SCH ×2 (06:12→12:36)
[2017-12-22 07:34] LABS: HEMATOCRIT 38.5 % (32.4-45.2); HEMOGLOBIN 12.6 GM/dL (10.7-15.3); MCH 30.6 pg (25.7-33.7); MCHC 32.8 g/dl (32.0-36.0); MEAN CELL VOLUME 93.4 fl (80-96); MEAN PLT VOLUME 9.4 fl (7.5-11.1); PLATELET COUNT 68 K/MM3 (134-434); RBC 4.12 M/mm3 (3.60-5.2); RDW 13.3 % (11.6-15.6)
[2017-12-22 07:48] LABS: ALBUMIN 3.4 g/dl (3.4-5.0); ANION GAP 11 (8-16); BLOOD UREA NITROGEN 4 mg/dL (7-18); CALCIUM 9.5 mg/dL (8.5-10.1); CHLORIDE 93 mmol/L (98-107); CO2 29 mmol/L (21-32); GLUCOSE,RANDOM 113 mg/dL (74-106); MAGNESIUM 1.5 mg/dL (1.8-2.4); PHOSPHOROUS 2.5 mg/dL (2.5-4.9); POTASSIUM 3.5 mmol/L (3.5-5.1); SODIUM 133 mmol/L (136-145)
[2017-12-22 07:52] LABS: ALK PHOS 82 U/L (45-117); BILIRUBIN,TOTAL 1.2 mg/dL (0.2-1.0); CREATININE 0.4 mg/dL (0.55-1.02); SGOT/AST 92 U/L (15-37); SGPT/ALT 70 U/L (12-78); TOT PROT 7.1 g/dl (6.4-8.2)
[2017-12-22] MEDS ORDERED: PT OWN MED DRAWER 7, Y5N ONE (09:44)
[2017-12-22] MEDS: PRENATAL VITAMINS W/ FOLIC ACID TABLET (FP) PO SCH (09:45)
[2017-12-22] MEDS ORDERED: POTASSIUM CHLORIDE TABS 20 MEQ TABLET.ER (FP) PO ONE (10:00)
[2017-12-22] MEDS ORDERED: chlordiazePOXIDE 5 MG CAPSULE PO SCH (11:00)
[2017-12-22] MEDS ORDERED: NICOTINE POLACRILEX 2 MG GUM BUC PRN (11:58)
[2017-12-22] MEDS ORDERED: ZOLPIDEM TARTRATE 5 MG TABLET PO PRN (11:58)
[2017-12-22] MEDS ORDERED: diazePAM 5 MG TABLET PO ONE (11:59)
[2017-12-22] MEDS: chlordiazePOXIDE 5 MG CAPSULE PO SCH ×2 (12:00→17:40)
[2017-12-22] MEDS ORDERED: NICOTINE 14 MG/24 HOURS TOPICAL PATCH TD SCH (12:00)
--- NOTE | 2017-12-22 12:48 | PN ---
Teaching Attending Note Name of Resident: Harrison Ward ATTENDING PHYSICIAN STATEMENT I saw and evaluated the patient. I reviewed the resident's note and discussed the case with the resident. I agree with the resident's findings and plan as documented. SUBJECTIVE:requesting more food, states her abdominal pain is due to her being hungry. had multiple episdoes of bilious vomiting last night which she says was triggered when she was thinking of some emotional stressos in her life. very concerned she will loose more weight if she does not eat. denies CP, SOB, fever , chills, C/D. OBJECTIVE: Last Vital Signs Temp Pulse Resp BP Pulse Ox 99.2 F 78 20 140/85 97 12/22/17 08:36 12/22/17 08:36 12/22/17 08:36 12/22/17 08:36 12/20/17 21:00 General mildly anxious CV S1 S2 RRR no murmur/rub/gallop Lungs CTA B/L no wheezing/rales/rhonchi Abdomen soft NT/ND extremities no tremor ASSESSMENT AND PLAN: 37yo F with PMH continuous polysubstance abuse sent from [facility] due to abdominal pain and vomiting and found to have acute pancreatitis 1. Acute Pancreatitis- likely due to ETOH. low concern for retain CBD stone as LFT more consistent due to ETOH use. U/s showing dilated pancreatic duct. MRCP to be done today. will advance to full liquid diet and depending on how she tolerated advance diet further. cont pain control. IVF 2. ETOH withdrawal- CIWA 3. on libirum taper, will complete taper in the AM. interested in inpatient rehab. will notify dr Daley of her desire for inpatient rehab. explained will refer but in the event there is no bed she will have to go home and call the rehab center daily for bed availability.cont thiamine/folate/MVI 3. Methadone program- dose confirmed. last dose received was 12/19 from facility. Methadone 40mg. 4. Acute transaminitis- more likely due to ETOH as AST>ALT, less likely from cholestasis picutre. now improving. U/s showing fatty liver. will monitor for now 5. Hypophosphatemia- resolved 6. Hypomagnesemia- Mg 800mg 7. Polycytehmia- due to dehydration. resolved 8. Leukopenia - due to ETOH. stable 9. thrombocytopenia- due to ETOH. no signs of bleeding. no indication for plt transfusion 10. DVT ppx- Hep sq 11. possible d/c home tomorrrow if tolerating diet once libirum protocol completed
[2017-12-22] MEDS ORDERED: MAGNESIUM SULF 50% (8.12 MEQ/2 ML-1 GM VIAL) IVPB ONE (13:12)
[2017-12-22] MEDS ORDERED: MAGNESIUM 1GM/D5W - 1 GM/100 ML IVPB IVPB ONE (14:45)
--- NOTE | 2017-12-22 15:58 | PN ---
Physical Exam: SUBJECTIVE: Patient seen and examined. Per nursing, pt did not sleep overnight, and was continually stating that she is in pain. This am, pt reports mild nausea, several episodes of NBNB emesis yesterday, no abdominal pain, 9/10 back pain, anxiety, and tremors. She states that she had a small BM yesterday. OBJECTIVE: Vital Signs Period Temp Pulse Resp BP Sys/Ferrell Pulse Ox Last 24 Hr 98.4 F-99.4 F 70-94 17-20 115-142/66-86 97 GENERAL: thin lady, sitting in bed, in NAD, restless appearing HEENT: NC, AT, EOMI, PEARRLA NECK: Trachea midline, full range of motion, supple. LUNGS: Breath sounds equal, clear to auscultation bilaterally, no wheezes, no crackles, no accessory muscle use. HEART: Regular rate and rhythm, S1, S2 without murmur, rub or gallop. ABDOMEN: Soft, nontender, nondistended, normoactive bowel sounds, no guarding, no rebound, no hepatosplenomegaly, no masses. EXTREMITIES: 2+ pulses, warm, well-perfused, no edema. NEUROLOGICAL: Cranial nerves II through XII grossly intact. Normal speech, gait not observed. PSYCH: anxious Laboratory Results - last 24 hr 12/22/17 12/22/17 06:41 06:41 WBC 5.0 RBC 4.12 Hgb 12.6 Hct 38.5 MCV 93.4 MCH 30.6 MCHC 32.8 RDW 13.3 Plt Count 68 L MPV 9.4 Sodium 133 L Potassium 3.5 Chloride 93 L Carbon Dioxide 29 Anion Gap 11 BUN 4 L Creatinine 0.4 L Creat Clearance w eGFR > 60 Random Glucose 113 H Calcium 9.5 Phosphorus 2.5 Magnesium 1.5 L Total Bilirubin 1.2 H AST 92 H ALT 70 Alkaline Phosphatase 82 Total Protein 7.1 Albumin 3.4 Active Medications Generic Name Dose Route Start Last Admin Trade Name Freq PRN Reason Stop Dose Admin Chlordiazepoxide HCl 15 mg 12/22/17 11:00 12/22/17 12:00 Librium - PO 12/23/17 05:01 15 mg [id number] KAELA Administration Heparin Sodium (Porcine) 5,000 unit 12/20/17 06:00 12/22/17 14:42 Heparin - SQ 5,000 unit TID KAELA Administration Lactated Ringer's 1,000 ml in 1,000 mls @ 175 mls/hr 12/20/17 11:45 12/22/17 12:36 Lactated Ringers Solution IV 175 mls/hr ASDIR KAELA Administration Magnesium Sulfate/Dextrose 1 gm in 100 mls @ 100 mls/hr 12/22/17 14:45 15:32 Magnesium 1gm/D5w - IVPB 12/22/17 15:44 100 mls/hr ONCE ONE Administration Methadone HCl 40 mg 12/21/17 06:00 12/22/17 06:06 Dolophine - PO 40 mg DAILY@0600 KAELA Administration Nicotine 14 mg 12/22/17 12:00 12/22/17 13:45 Nicoderm Patch - TD 14 mg DAILY KAELA Administration Nicotine Polacrilex 2 mg 12/22/17 11:58 Nicorette Gum - BUC Q2H PRN NICOTINE REPLACEMENT RX Ondansetron HCl 8 mg 12/20/17 10:34 Zofran Odt - SL Q6H PRN NAUSEA AND/OR VOMITING Multivit/Folic Acid/Iron 1 tab 12/21/17 10:00 12/22/17 09:45 Vitamins (Sjr) - PO 1 tab DAILY KAELA Administration Thiamine HCl 100 mg 12/20/17 22:00 12/21/17 21:37 Vitamin B1 - PO 100 mg HS KAELA Administration Zolpidem Tartrate 10 mg 12/22/17 11:58 Ambien - PO HS PRN INSOMNIA ASSESSMENT/PLAN: 37F with a hx of recurrent pancreatitis, continuous polysubstance abuse, bipolar disorder, and HTN sent from [facility] due to abdominal pain and vomiting who was found to have acute pancreatitis. Pt is tolerating advancement of diet. #Acute Pancreatitis -likely 2/2 to ETOH. low concern for retained CBD stone or mass as LFT pattern more consistent due to ETOH use -U/S showing dilated pancreatic duct. MRCP to be done today -tolerated full liquid diet for lunch, advanced diet to regular for dinner. Reassess chip -cont pain control with oxycodone -cont IVF with LR @ 175cc/hr -zofran PRN -ambien PRN #ETOH withdrawal -CIWA 3 -on libirum taper, will complete taper in the AM -interested in inpatient rehab. Dr. Daley apprised and pt is accepted pending bed availability and insurance acceptance. Pt informed that in the event there is no bed, she will have to go home and call the rehab center daily for bed availability -cont thiamine/folate/MVI #Methadone program -dose confirmed. last dose received was 12/19 from facility -continue Methadone 40mg #Acute transaminitis -most likely due to ETOH as evidenced by AST:ALT ratio. now improving. -U/S showing fatty liver. will monitor for now #Hypophosphatemia -resolved #Hypomagnesemia -Mg of 1.5 today -repleted #Polycythemia -due to dehydration. resolved #Leukopenia -likely due to ETOH. stable #thrombocytopenia -likely due to ETOH. no signs of bleeding. no indication for plt transfusion -platelets downtrending from 103--> 82--> 68 -continue to trend #FEN/ppx -LR @ 175 cc/hr -repleted Mg and K -regular diet starting at dinner -Hep sq -no GI ppx indicated #Dispo -possible d/c home tomorrrow if tolerating diet once libirum protocol completed Case discussed with attending, Dr. Su. -Harrison Ward MD PGY1 Visit type - Emergency Visit Emergency Visit: Yes ED Registration Date: 12/19/17 Care time: The patient presented to the Emergency Department on the above date and was hospitalized for further evaluation of their emergent condition. - New Patient This patient is new to me today: Yes Date on this admission: 12/22/17 - Critical Care Critical Care patient: No
--- NOTE | 2017-12-22 21:35 | PN ---
Progress Note (short form) - Note Progress Note: Called to see this 37F with a hx of recurrent pancreatitis, continuous polysubstance abuse (on methadone program and ETOH withdrawal), bipolar disorder , and HTN sent from [facility] due to abdominal pain and vomiting who was found to have acute pancreatitis, now asking to sign AMA and leave. I discussed with the patient the risks of leaving AMA especially while on treatment for ETOH, explaining the risks to her of worsening pancreatitis, sepsis, DTs and but patient still insisted on leaving AMA.
[2017-12-22 22:43] VITALS: BP 108/64; PULSE 74; TEMP 98.7
--- NOTE | 2017-12-23 08:18 | DS ---
Physical Exam: SUBJECTIVE: Patient seen and examined Per nursing, pt did not sleep overnight, and was continually stating that she is in pain. This am, pt reports mild nausea, several episodes of NBNB emesis yesterday, no abdominal pain, 9/10 back pain, anxiety, and tremors. She states that she had a small BM yesterday. OBJECTIVE: Vital Signs Period Temp Pulse Resp BP Sys/Ferrell Pulse Ox Last 24 Hr 98.5 F-99.2 F 62-78 17-20 108-140/64-85 97 PHYSICAL EXAM GENERAL: thin lady, sitting in bed, in NAD, restless appearing HEENT: NC, AT, EOMI, [place]ARRLA NECK: Trachea midline, full range of motion, supple. LUNGS: Breath sounds equal, clear to auscultation bilaterally, no wheezes, no crackles, no accessory muscle use. HEART: Regular rate and rhythm, S1, S2 without murmur, rub or gallop. ABDOMEN: Soft, nontender, nondistended, normoactive bowel sounds, no guarding, no rebound, no hepatosplenomegaly, no masses. EXTREMITIES: 2+ pulses, warm, well-perfused, no edema. NEUROLOGICAL: Cranial nerves II through XII grossly intact. Normal speech, gait not observed. PSYCH: anxious LABS Laboratory Results - last 24 hr 12/22/17 06:41 Sodium 133 L Potassium 3.5 Chloride 93 L Carbon Dioxide 29 Anion Gap 11 BUN 4 L Creatinine 0.4 L Creat Clearance w eGFR > 60 Random Glucose 113 H Calcium 9.5 Phosphorus 2.5 Magnesium 1.5 L Total Bilirubin 1.2 H AST 92 H ALT 70 Alkaline Phosphatase 82 Total Protein 7.1 Albumin 3.4 Abdominal US: small sludge in GB, dilated CBD of 8-9mm, mild dilation of pancreatic duct of 3mm. HOSPITAL COURSE: Date of Admission:12/19/17 Date of Discharge: 12/23/17 37F with a hx of recurrent pancreatitis, continuous polysubstance abuse, bipolar disorder, and HTN sent from [facility] due to abdominal pain and vomiting who was found to have acute pancreatitis. Pt was started on IV fluids, NPO, pain control, and anti-emetics. Abdominal US showed small sludge in GB, dilated CBD of 8-9mm, mild dilation of pancreatic duct of 3mm. So, an MRCP was ordered to determine presence of gallstones or mass. Pt was also placed on a librium taper for alcohol withdrawal. Pt was explained that she was accepted to [facility] for drug rehab pending bed availability and insurance acceptance. She was explained that if the MRCP did not show any abnormalities and once she finished her librium taper, she would be discharged. However, on the evening of 12/22, the pt demanded to leave AMA. The night internal control specialist discussed with the patient the risks of leaving AMA especially while on treatment for ETOH, explaining the risks to her of worsening pancreatitis, sepsis, DTs and but patient still insisted on leaving AMA. -Harrison Ward MD PGY1 Minutes to complete discharge: 35 Discharge Summary Reason For Visit: PANCREATITIS Condition: Improved - Instructions Diet, Activity, Other Instructions: You presented with abdominal pain and were found to have acute pancreatitis. Medications: Continue taking all previous medications. Followups: 1. Please f/u with your PCP within one week. 2. Please call up [facility] drug rehab program for bed availability. If you develop any concerning symptoms such as chest pain or shortness of breath , return to the ED. Referrals: ON STAFF,NOT [Primary Care Provider] - Disposition: AGAINST MEDICAL ADVICE - Home Medications Comprehensive Discharge Medication List: Ambulatory Orders Coreg 12/20/17 Lisinopril 12/20/17 This patient is new to me today: No Emergency Visit: Yes ED Registration Date: 12/19/17 Care time: The patient presented to the Emergency Department on the above date and was hospitalized for further evaluation of their emergent condition. Critical Care patient: No - Discharge Referral Referred to [facility] No
== END 2017-12-22 22:00 | disposition left against medical advice (07) | DRG 282 ==
LOC: JER 15:25 → J5S 20:49
PROVIDERS: ADMIT Internal Medicine; ATTEND Internal Medicine
DX: K85.90 Acute pancreatitis without necrosis or infection, unspecified (principal); F10.239 Alcohol dependence with withdrawal, unspecified; R74.0 Nonspecific elevation of levels of transaminase and lactic acid dehydrogenase [LDH]; E83.39 Other disorders of phosphorus metabolism; E83.42 Hypomagnesemia; D69.6 Thrombocytopenia, unspecified; D72.819 Decreased white blood cell count, unspecified; E86.0 Dehydration
CPT/HCPCS: 36415; 76700-TC; 80048; 80053; 80076; 80307; 81003; 82962; 83690; 83735; 84100; 84702; 84703; 85025; 85027; 90688; 90732; 99284-25; G0009; J0735; J1644

== ENCOUNTER 2019-08-26 22:06 | Inpatient (IN) | payer OTHER ==
[2019-08-26 22:36] VITALS: BMI 21.2
[2019-08-26] MEDS ORDERED: morphine CARPU-JECT 4 MG/1 ML DISP.SYRIN IVPUSH ONE (23:04)
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
[2019-08-26] MEDS ORDERED: METOCLOPRAMIDE HCL INJECTION 10 MG/2 ML VIAL IVPB ONE (23:41)
[2019-08-26] MEDS ORDERED: SODIUM CHLORIDE 0.9% 500 ML INFUS.BAG IV ONE (23:41)
[2019-08-26] MEDS ORDERED: FOLIC ACID INJECTION - 1 MG, THIAMINE HCL 100 MG, MULTIVIT INJECTION ADULT 10 ML in SOD... IVPB ONE (23:49)
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
[2019-08-27] MEDS ORDERED: METOCLOPRAMIDE HCL INJECTION 10 MG/2 ML VIAL ONE (00:58)
[2019-08-27] MEDS ORDERED: morphine SULFATE 4 MG/ML VIAL ONE ×2 (00:58→08:50)
[2019-08-27] MEDS ORDERED: LORazepam 2 MG/ML SDV VIAL ONE (00:59)
[2019-08-27 01:34] LABS: BASO % 2.2 % (0-2.0); EOS % 1.1 % (0-4.5); HEMATOCRIT 34.5 % (32.4-45.2); HEMOGLOBIN 11.4 GM/dL (10.7-15.3); LYMPH % 27.7 % (8-40); MCH 31.7 pg (25.7-33.7); MCHC 32.9 g/dl (32.0-36.0); MEAN CELL VOLUME 96.4 fl (80-96); MEAN PLT VOLUME 9.5 fl (7.5-11.1); MONO % 7.7 % (3.8-10.2); NEUT % 61.3 % (42.8-82.8); PLATELET COUNT 160 K/MM3 (134-434); RBC 3.58 M/mm3 (3.60-5.2); RDW 14.9 % (11.6-15.6); WHITE BLOOD COUNT 5.1 K/mm3 (4.0-10.0)
[2019-08-27 01:46] LABS: INR 0.94 (0.83-1.09); PROTHROMBIN TIME (PATIENT) 11.1 SEC (9.7-13.0)
[2019-08-27 02:04] LABS: ALBUMIN 4.1 g/dl (3.4-5.0); ALK PHOS 77 U/L (45-117); ANION GAP 9 MMOL/L (8-16); BILIRUBIN,TOTAL 0.3 mg/dL (0.2-1); BLOOD UREA NITROGEN 10.8 mg/dL (7-18); CALCIUM 9.6 mg/dL (8.5-10.1); CHLORIDE 98 mmol/L (98-107); CO2 31 mmol/L (21-32); CREATININE 0.6 mg/dL (0.55-1.3); GLUCOSE,RANDOM 78 mg/dL (74-106); MAGNESIUM 1.3 mg/dL (1.8-2.4); PHOSPHOROUS 1.2 mg/dL (2.5-4.9); POTASSIUM 3.7 mmol/L (3.5-5.1); SGOT/AST 100 U/L (15-37); SGPT/ALT 79 U/L (13-61); SODIUM 137 mmol/L (136-145); TOT PROT 8.1 g/dl (6.4-8.2)
--- NOTE | 2019-08-27 02:04 | PDOC ---
*Physical Exam - Vital Signs Last Vital Signs Temp Pulse Resp BP Pulse Ox 85 18 162/92 98 08/27/19 01:14 08/26/19 22:34 08/27/19 01:14 08/26/19 22:34 ED Treatment Course - LABORATORY CBC & Chemistry Diagram: 08/27/19 00:52 08/27/19 00:52 - ADDITIONAL ORDERS Additional order review: Laboratory Results 08/27/19 08/27/19 08/27/19 00:52 00:52 00:52 PT with INR 11.10 INR 0.94 Phosphorus Cancelled Magnesium Cancelled Lipase 436 H Acetaminophen Alcohol, Quantitative 08/27/19 08/27/19 00:52 00:52 PT with INR INR Phosphorus Magnesium Lipase Acetaminophen <2.0 Alcohol, Quantitative Cancelled 08/27/19 00:52 RBC 3.58 L MCV 96.4 H MCHC 32.9 RDW 14.9 D MPV 9.5 Neutrophils % 61.3 D Lymphocytes % 27.7 D Monocytes % 7.7 Eosinophils % 1.1 D Basophils % 2.2 H - Medications Given in the ED: ED Medications Discontinued Medications Generic Name Dose Route Start Last Admin Trade Name Nick PRN Reason Stop Dose Admin Lorazepam 2 mg 08/26/19 23:49 08/27/19 01:15 Ativan Injection - IVPUSH 08/26/19 23:50 2 mg ONCE ONE Administration Metoclopramide HCl 10 mg 08/26/19 23:41 08/27/19 01:41 Reglan Injection - IVPB 08/26/19 23:42 10 mg ONCE ONE Administration Morphine Sulfate 4 mg 08/26/19 23:04 08/27/19 01:14 Morphine Injection - IVPUSH 08/26/19 23:05 4 mg ONCE ONE Administration Sodium Chloride 1,000 ml 08/26/19 23:41 08/27/19 01:15 Normal Saline - IV 08/26/19 23:42 1,000 ml ONCE ONE Administration Medical Decision Making - Medical Decision Making 08/27/19 02:02 Sign out received from Mid team - labs - CT - Dispo pending CT results 08/27/19 04:06 trop neg 08/27/19 04:07 CT facial bones imaging handyperson: There is slight deformity of the left nasal bone. This represent a fracture but I'm not certain that it is acute since there is no appreciable soft tissue swelling. Nevertheless check for trauma/tenderness in this area. No other orbital or facial fracture. Globes and orbits are intact. CT c-spine imaging handyperson: Negative for cervical spine fracture or malalignment. 08/27/19 05:[address] A/P read as CT head; Imaging handyperson notified and states will have corrected. f/u CT A/P read 08/27/19 06:27 CT a/p imaging handyperson: Negative for abdominal pelvic visceral injury. Liver, gallbladder, spleen, pancreas, adrenal glands, kidneys urinary tracts and urinary bladder are all intact. No acute abnormality of bowel. No pneumoperitoneum or ascites. Please note that the lower pelvis is obscured due to artifact from bilateral hip prostheses. Possible right adnexal cysts. Question nabothian cysts or fibroids. Follow-up ultrasound recommended. Admit for pancreatitis 08/27/19 06:[address] Capone Admitted Discharge - Discharge Information Problems reviewed: Yes Clinical Impression/Diagnosis: Pancreatitis - Admission Yes - Follow up/Referral - Patient Discharge Instructions - Post Discharge Activity
[2019-08-27 06:30] LABS: COCAINE, UR NEGATIVE ng/ml (CUTOFF=300); METHADONE, UR NEGATIVE ng/ml (CUTOFF=300); PHENCYCLIDINE,URINE NEGATIVE ng/ml (CUTOFF=25); URINE AMPHETAMINES NEGATIVE ng/ml (CUTOFF=500); URINE BARBITURATES NEGATIVE ng/ml (CUTOFF=200)
[2019-08-27 06:37] LABS: OPIATES, URI POSITIVE ng/ml (CUTOFF=300); URINE BENZODIAZEPINES POSITIVE ng/ml (CUTOFF=200)
[2019-08-27] MEDS ORDERED: LACTATED RINGERS SOLUTION 1,000 ML IV SCH ×2 (07:30→08:17)
[2019-08-27] MEDS ORDERED: LORazepam 1 MG TABLET PO PRN (07:31)
[2019-08-27] MEDS ORDERED: morphine SULFATE 4 MG/ML VIAL IVPUSH PRN (07:32)
[2019-08-27] MEDS ORDERED: MAGNESIUM 4GM/H20 - 4 GM/100 ML IVPB IVPB ONE (08:15)
[2019-08-27] MEDS ORDERED: KETOROLAC TROMETHAMINE 15 MG/ML VIAL IVPUSH PRN (08:19)
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
[2019-08-27] MEDS ORDERED: THIAMINE HCL 100 MG TABLET (FP) ONE (08:47)
[2019-08-27] MEDS ORDERED: KETOROLAC TROMETHAMINE 15 MG/ML VIAL ONE (09:07)
[2019-08-27 09:22] LABS: IRON SERUM 70 ug/dL (50-175); TOTAL IRON BINDING CAPACITY 312 ug/dL (250-450)
[2019-08-27 09:47] LABS: URINE APPEARANCE CLOUDY; URINE COLOR YELLOW; URINE GLUCOSE (UA) NEGATIVE (NEGATIVE)
[2019-08-27 09:48] LABS: PH,URINE > 9.0 (5.0-8.0); URINE BILIRUBIN NEGATIVE (NEGATIVE); URINE KETONE NEGATIVE (NEGATIVE); URINE LEUK ESTERASE NEGATIVE (NEGATIVE); URINE NITRITE NEGATIVE (NEGATIVE); URINE PROTEIN NEGATIVE (NEGATIVE); URINE UROBILINOGEN 0.2 mg/dL (0.2-1.0)
[2019-08-27] MEDS ORDERED: NAPH,MB-DB/K PH,MBDB POWDER PACKET PO SCH (10:00)
[2019-08-27] MEDS ORDERED: PANTOPRAZOLE 40 MG TABLET (FP) PO SCH (10:00)
[2019-08-27] MEDS ORDERED: FOLIC ACID 1 MG TABLET (FP) PO SCH (10:00)
[2019-08-27] MEDS ORDERED: THIAMINE HCL 100 MG TABLET (FP) PO SCH (10:00)
[2019-08-27] MEDS ORDERED: ENOXAPARIN NA (PORCINE) 40 MG/0.4 ML DISP.SYRIN SQ SCH (10:00)
[2019-08-27] MEDS ORDERED: LORazepam 0.5 MG TABLET ONE (10:47)
[2019-08-27] MEDS ORDERED: PANTOPRAZOLE 40 MG TABLET (FP) ONE (10:47)
[2019-08-27 11:10] LABS: MAGNESIUM 1.1 mg/dL (1.8-2.4)
--- NOTE | 2019-08-27 12:46 | EKG ---
Test Reason : Blood Pressure : / mmHG Vent. Rate : 088 BPM Atrial Rate : 088 BPM P-R Int : 146 ms QRS Dur : 080 ms QT Int : 364 ms P-R-T Axes : 066 058 061 degrees QTc Int : 440 ms NORMAL SINUS RHYTHM T WAVE ABNORMALITY, CONSIDER ANTERIOR ISCHEMIA ABNORMAL ECG NO PREVIOUS ECGS AVAILABLE Confirmed by KRISTI BLANC MD ([id number]) on 08/27/2019 12:46:27 PM Referred By: Confirmed By:KRISTI BLANC MD
[2019-08-27 13:32] VITALS: BP 143/98; PULSE 75; TEMP 98.3
[2019-08-27] MEDS ORDERED: GABAPENTIN 300 MG CAPSULE (FP) PO SCH (14:00)
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
[2019-08-29] MEDS ORDERED: LORazepam 1 MG TABLET PO SCH (05:00)
[2019-08-30] MEDS ORDERED: LORazepam 0.5 MG TABLET PO SCH (05:00)
[2019-08-31] MEDS ORDERED: LORazepam 0.5 MG TABLET PO ONE (05:00)
== END 2019-08-27 16:27 | disposition other institution (70) | DRG 241 ==
LOC: JER 22:06 → JERBED 08-27 06:28
PROVIDERS: ADMIT Internal Medicine; ATTEND Internal Medicine
DX: K29.20 Alcoholic gastritis without bleeding (principal); E83.42 Hypomagnesemia; E83.39 Other disorders of phosphorus metabolism; F32.9 Major depressive disorder, single episode, unspecified; F14.10 Cocaine abuse, uncomplicated; F90.1 Attention-deficit hyperactivity disorder, predominantly hyperactive type; R74.0 Nonspecific elevation of levels of transaminase and lactic acid dehydrogenase [LDH]; F10.230 Alcohol dependence with withdrawal, uncomplicated; J44.9 Chronic obstructive pulmonary disease, unspecified; F12.20 Cannabis dependence, uncomplicated
CPT/HCPCS: 36415; 70450-TC; 70486-TC; 71046-TC-FY; 72070-TC-FY; 72125-TC; 74177-TC; 76705-TC; 76830-TC; 76856-TC; 80053; 80307; 81003; 83540; 83550; 83690; 83735; 84100; 84484; 84703; 85025; 85610; 86803; 86850; 86900; 86901; 87086; 87389; 93005; 93010; 99284-25; J7030

== ENCOUNTER 2019-08-27 16:05 | Inpatient (IN) | payer OTHER ==
[2019-08-27 17:52] VITALS: BMI 21.2
[2019-08-27] MEDS ORDERED: BISMUTH SUBSALICYLATE 524 MG/30 ML UD PO PRN (18:02)
[2019-08-27] MEDS ORDERED: MENTHOL/PHENOL 1 EACH UD MM PRN (18:02)
[2019-08-27] MEDS ORDERED: MAG HYDROX/AL HYDROX/SIMETH 30 ML UNIT-DOSE CUP PO PRN (18:02)
[2019-08-27] MEDS ORDERED: MAGNESIUM CITRATE 300 ML BOTTLE PO PRN (18:02)
[2019-08-27] MEDS ORDERED: MAGNESIUM HYDROX 2400MG/30ML ORAL SUSPENSION 30 ML CUP PO PRN (18:02)
--- NOTE | 2019-08-27 18:02 | HP ---
CIWA Score - Admission Criteria [facility] Guidelines: Admission for Medically Managed Detox: Requires at least one of the followin. CIWA greater than 12 2. Seizures within the past 24 hours 3. Delirium tremens within the past 24 hours 4. Hallucinations within the past 24 hours 5. Acute intervention needed for co occurring medical disorder 6. Acute intervention needed for co occurring psychiatric disorder 7. Severe withdrawal that cannot be handled at a lower level of care (continued vomiting, continued diarrhea, abnormal vital signs) requiring intravenous medication and/or fluids 8. Admitting History and Physical - Past Medical History Pulmonary: Yes: Bronchitis. No: Asthma, Cancer, COPD, O2 Dependent, Pneumonia, Previously Intubated, Pulmonary Embolus, Pulmonary Fibrosis, Sleep Apnea Gastrointestinal: Yes: Pancreatitis ...LMP: 05/26/13 - Smoking History Smoking history: Unknown if ever smoked Have you smoked in the past 12 months: Yes Aproximately how many cigarettes per day: 20 - Alcohol/Substance Use Hx Alcohol Use: Yes Admission ROS BHS - HPI Allergies/Adverse Reactions: Allergies Allergy/AdvReac Type Severity Reaction Status Date / Time acetaminophen [From Tylenol] AdvReac Unknown Verified 08/27/19 17:46 History of Present Illness: pt returned from the hospital , evaluated for pancreatitis , started on Ativan protocol, will continue same . No other significant findings or c/o from previous H & P done 08/26/19 by residential mortgage underwriter Exam Limitations: No Limitations - Ebola screening Have you traveled outside of the country in the last 21 days: No (N) Have you had contact with anyone from an Ebola affected area: No Do you have a fever: No - Review of Systems Constitutional: No Symptoms Reported EENT: reports: No Symptoms Reported Respiratory: reports: No Symptoms reported Cardiac: reports: No Symptoms Reported GI: reports: See HPI : reports: No Symptoms Reported Musculoskeletal: reports: See HPI, Back Pain Integumentary: reports: Bruising Neuro: reports: No Symptoms reported Endocrine: reports: No Symptoms Reported Psychiatric: reports: Orientated x3, Agitated, Anxious Patient History - Patient Medical History Hx Anemia: No Hx Asthma: No Hx Chronic Obstructive Pulmonary Disease (COPD): No Hx Cancer: No Hx Cardiac Disorders: Yes ([place] X2) Hx Congestive Heart Failure: No Hx Hypertension: No Hx Hypercholesterolemia: No Hx Pacemaker: No HX Cerebrovascular Accident: No Hx Seizures: No Hx Dementia: No Hx Diabetes: No Hx Gastrointestinal Disorders: No Hx Liver Disease: No Hx Genitourinary Disorders: No Hx Sexually Transmitted Disorders: No Hx Renal Disease (ESRD): No Hx Thyroid Disease: No Hx Human Immunodeficiency Virus (HIV): No Hx Hepatitis C: No Hx Depression: Yes Hx Suicide Attempt: No Hx Bipolar Disorder: No Hx Schizophrenia: No - Patient Surgical History Past Surgical History: Yes Hx Neurologic Surgery: No Hx Cataract Extraction: No Hx Cardiac Surgery: No Hx Lung Surgery: No Hx Breast Surgery: No Hx Breast Biopsy: No Hx Abdominal Surgery: No Hx Appendectomy: No Hx Cholecystectomy: No Hx Genitourinary Surgery: No Hx Section: No Hx Orthopedic Surgery: Yes (s/p left hip surgery in 2011) Anesthesia Reaction: No - PPD History Date: 07/14/13 - Reproductive History Last Menstrual Period: 05/26/13 - Smoking Cessation Smoking history: Unknown if ever smoked Have you smoked in the past 12 months: Yes Aproximately how many cigarettes per day: 20 Cigars Per Day: 0 Hx Chewing Tobacco Use: No - Substances abused Alcohol Substance route: Oral Frequency: Daily Amount used: liquor- 2 pints Age of first use: 17 Date of last use: 08/26/19 Admission Physical Exam BHS - Vital Signs Vital Signs: Vital Signs - 24 hr 08/27/19 17:48 Temperature 99.1 F Pulse Rate 82 Respiratory 20 Rate Blood Pressure 140/90 - Physical General Appearance: Yes: Mild Distress HEENTM: Yes: Hearing grossly Normal, Normocephalic, Normal Voice, Other (left minna - orbital ecchymosis) Respiratory: Yes: Chest Non-Tender, Lungs Clear, Normal Breath Sounds, No Respiratory Distress, No Accessory Muscle Use Neck: Yes: No masses,lesions,Nodules, Trachea in good position Cardiology: Yes: Regular Rhythm, Regular Rate, S1, S2 Abdominal: Yes: Non Tender, Soft Musculoskeletal: Yes: Gait Steady Extremities: Yes: Normal Range of Motion, Non-Tender Neurological: Yes: Fully Oriented, Alert, Motor Strength 5/5 Integumentary: Yes: Warm - Diagnostic (1) Alcohol dependence with uncomplicated withdrawal Current Visit: Yes Status: Acute Breathalyzer - Breathalyzer Breathalyzer: 0 Urine Drug Screen - Test Device Lot number: [id number] Expiration date: 04/09/21 - Control Is test valid?: Yes - Results Drug screen NEGATIVE: No Urine drug screen results: BZO-Benzodiazepines Inpatient Rehab Admission - Rehab Decision to Admit Inpatient rehab admission?: No
[2019-08-27] MEDS: IBUPROFEN 400 MG TABLET (FP) PO PRN (18:58)
[2019-08-27] MEDS: LORazepam 2 MG TABLET PO SCH ×2 (18:59→22:02)
[2019-08-27] MEDS: METHOCARBAMOL 500 MG TABLET PO PRN (18:59)
[2019-08-27] MEDS: THIAMINE HCL 100 MG TABLET (FP) PO SCH (21:57)
[2019-08-27] MEDS: MELATONIN 5 MG TABLETS PO PRN (21:57)
[2019-08-28] MEDS: LORazepam 2 MG TABLET PO SCH ×4 (05:55→22:11)
[2019-08-28] MEDS: PRENATAL VITAMINS W/ FOLIC ACID TABLET (FP) PO SCH (10:17)
[2019-08-28] MEDS: IBUPROFEN 400 MG TABLET (FP) PO PRN ×2 (10:20→17:25)
[2019-08-28] MEDS: METHOCARBAMOL 500 MG TABLET PO PRN ×2 (10:24→17:27)
--- NOTE | 2019-08-28 10:36 | PN ---
S CIWA - CIWA Score Nausea/Vomitin-No Nausea/No Vomiting Muscle Tremors: 2 Anxiety: 3 Agitation: 0-Normal Activity Paroxysmal Sweats: 3 Orientation: 0-Oriented Tacttile Disturbances: 0-None Auditory Disturbances: 0-None Visual Disturbances: 0-None Headache: 2-Mild CIWA-Ar Total Score: 10 BHS Progress Note (SOAP) Subjective: c/o sweats, anxiety, headache, muscle pain, and chills. Objective: 08/28/19 10:33 Vital Signs 08/28/19 08/28/19 06:00 09:29 Temperature 98.1 F 98.1 F Pulse Rate 67 74 Respiratory 16 18 Rate Blood Pressure 129/75 136/90 Labs pending. Assessment: 08/28/19 10:33 AOX3, in no acute respiratory distress. Full ROM, ambulating in the unit. Withdrawal symptoms. Plan: continue detox.
[2019-08-28] MEDS: NICOTINE 21 MG/24 HOURS TOPICAL PATCH TD SCH (11:50)
[2019-08-28] MEDS: NICOTINE POLACRILEX 2 MG GUM BUC PRN (15:01)
[2019-08-28] MEDS: hydrOXYzine PAMOATE 25 MG CAPSULE (FP) PO PRN (17:25)
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
[2019-08-28] MEDS: LORazepam 1 MG TABLET PO PRN (19:58)
[2019-08-28] MEDS: MELATONIN 5 MG TABLETS PO PRN (22:11)
[2019-08-28] MEDS: THIAMINE HCL 100 MG TABLET (FP) PO SCH (22:11)
[2019-08-29] MEDS: METHOCARBAMOL 500 MG TABLET PO PRN ×3 (01:11→22:05)
[2019-08-29] MEDS: LORazepam 1 MG TABLET PO PRN (01:12)
[2019-08-29] MEDS: LORazepam 1 MG TABLET PO SCH ×4 (06:51→22:03)
[2019-08-29] MEDS: PRENATAL VITAMINS W/ FOLIC ACID TABLET (FP) PO SCH (10:01)
[2019-08-29] MEDS: NICOTINE 21 MG/24 HOURS TOPICAL PATCH TD SCH (10:02)
[2019-08-29] MEDS: NICOTINE POLACRILEX 2 MG GUM BUC PRN ×2 (10:04→17:18)
[2019-08-29] MEDS: BACITRACIN 15 GM TUBE TOPICAL OINTMENT TP SCH ×2 (11:00→22:03)
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
[2019-08-29] MEDS: hydrOXYzine PAMOATE 25 MG CAPSULE (FP) PO PRN ×2 (15:45→22:05)
[2019-08-29] MEDS: THIAMINE HCL 100 MG TABLET (FP) PO SCH (22:03)
[2019-08-29] MEDS: MELATONIN 5 MG TABLETS PO PRN (22:05)
[2019-08-30] MEDS ORDERED: LORazepam 0.5 MG TABLET PO PRN
[2019-08-30] MEDS: IBUPROFEN 400 MG TABLET (FP) PO PRN (06:03)
[2019-08-30] MEDS: METHOCARBAMOL 500 MG TABLET PO PRN (06:06)
[2019-08-30] MEDS: NICOTINE POLACRILEX 2 MG GUM BUC PRN (06:08)
[2019-08-30] MEDS: LORazepam 0.5 MG TABLET PO SCH ×2 (06:10→10:50)
--- NOTE | 2019-08-30 09:29 | DS ---
[facility] Detox Discharge Summary Admission Date: 08/27/19 Discharge Date: 08/30/19 - History Present History: Alcohol Dependence, Cocaine Dependence - Physical Exam Results Vital Signs: Vital Signs Temperature 97.7 F 08/30/19 06:47 Pulse Rate 65 08/30/19 06:47 Respiratory Rate 18 08/30/19 06:47 Blood Pressure 129/77 08/30/19 06:47 O2 Sat by Pulse Oximetry (%) Pertinent Admission Physical Exam Findings: pt arrived in withdrawals Vital Signs Temperature 97.7 F 08/30/19 06:47 Pulse Rate 65 08/30/19 06:47 Respiratory Rate 18 08/30/19 06:47 Blood Pressure 129/77 08/30/19 06:47 O2 Sat by Pulse Oximetry (%) today pt is aaox3 ambulating no acute distress pt arrived with bruising to left minna-orbital area. healing process noted. pt denies of any pain to area, pt denies of blurred vision. pt states she wants to go home and make sure her money is intact and wasn't stolen. pt shows no s/s of withdrawals pt advised to see the wastewater operator appt that was set up for her by ED. - Treatment Hospital Course: Detox Protocol Followed, Detoxed Safely, Responded well, Discharged Condition Good, Rehab Referral Accepted Patient has Accepted a Rehab Referral to: pt declined rehab; referral provided - Medication Discharge Medications: Ambulatory Orders Gabapentin [Neurontin] 300 mg PO TID 08/26/19 Albuterol Sulfate [Albuterol Sulfate Hfa] 8.5 gm IH Q6H PRN #1 [id number] Budesonide/Formeterol Fumarate [SYMBICORT 80/4.5mcg -] 1 inh PO DAILY #1 cannister 08/27/19 Folic Acid - 1 mg PO DAILY #30 tablet 08/27/19 Magnesium 200 mg PO BID 5 Days #10 tablet 08/27/19 Thiamine HCl [Vitamin B1 -] 100 mg PO DAILY #30 tablet 08/27/19 - Diagnosis (1) Alcohol dependence with uncomplicated withdrawal Current Visit: Yes Status: Chronic (2) History of attention deficit hyperactivity disorder (ADHD) Current Visit: Yes Status: Chronic (3) History of bipolar disorder Current Visit: Yes Status: Chronic (4) Insomnia Current Visit: Yes Status: Chronic (5) Nicotine dependence Current Visit: Yes Status: Chronic Qualifiers: Nicotine product type: cigarettes Substance use status: uncomplicated Qualified Code(s): F17.210 - Nicotine dependence, cigarettes, uncomplicated (6) Substance induced mood disorder Current Visit: Yes Status: Chronic (7) COPD (chronic obstructive pulmonary disease) Current Visit: Yes Status: Chronic Qualifiers: COPD type: unspecified COPD Qualified Code(s): J44.9 - Chronic obstructive pulmonary disease, unspecified (8) Elevated LFTs Current Visit: No Status: Acute (9) Cannabis dependence Current Visit: Yes Status: Chronic (10) Cocaine dependence Current Visit: Yes Status: Chronic (11) s/p left hip surgery Current Visit: No Status: Resolved - AMA Did Patient Leave Against Medical Advice: No
[2019-08-30 09:32] VITALS: BP 127/81; PULSE 84; TEMP 98.2
--- NOTE | 2019-08-30 10:00 | PN ---
[facility] Progress Note Note: Patient requested to see psychiatrist because she wanted to resumed Adderall 30 mg/day. Told technical writer and editor that she was taken that medication prior to admission and she wants to resume taking it. She was told that that the medication is not part of this facility formulary. However, she if I can verified that she was recently taking it, I can give her Ritalin 5 mg/bid as a substitute. She told technical writer and editor that she may leave if she cannot get Adderall. She is not willing to take Ritalin 5 mg/bid
[2019-08-30] MEDS: NICOTINE 21 MG/24 HOURS TOPICAL PATCH TD SCH (10:50)
[2019-08-30] MEDS: PRENATAL VITAMINS W/ FOLIC ACID TABLET (FP) PO SCH (10:50)
[2019-08-30] MEDS: BACITRACIN 15 GM TUBE TOPICAL OINTMENT TP SCH (10:51)
[2019-08-30] MEDS: hydrOXYzine PAMOATE 25 MG CAPSULE (FP) PO PRN (10:51)
[2019-08-31] MEDS ORDERED: LORazepam 0.5 MG TABLET PO ONE (05:00)
== END 2019-08-30 12:34 | disposition home or self-care (01) | DRG 774 ==
LOC: YASAS 16:05 → Y6N 18:16
PROVIDERS: ADMIT Allergy & Immunology; ATTEND Allergy & Immunology
PROC: HZ2ZZZZ Detoxification Services for Substance Abuse Treatment (ICD-10-PCS; principal; 2019-08-27)
DX: F10.230 Alcohol dependence with withdrawal, uncomplicated (principal); F14.20 Cocaine dependence, uncomplicated; F12.20 Cannabis dependence, uncomplicated; F17.210 Nicotine dependence, cigarettes, uncomplicated; F19.24 Other psychoactive substance dependence with psychoactive substance-induced mood disorder; F31.9 Bipolar disorder, unspecified; F90.9 Attention-deficit hyperactivity disorder, unspecified type; G47.00 Insomnia, unspecified; J44.9 Chronic obstructive pulmonary disease, unspecified; I25.10 Atherosclerotic heart disease of native coronary artery without angina pectoris; I25.2 Old myocardial infarction; R94.5 Abnormal results of liver function studies; K86.9 Disease of pancreas, unspecified; Z98.890 Other specified postprocedural states; Z88.6 Allergy status to analgesic agent
CPT/HCPCS: 36415; 81025; 86593

== ENCOUNTER 2023-04-30 21:18 | Inpatient (IN) | payer OTHER ==
[2023-04-30 22:22] VITALS: BMI 23.7
[2023-05-01] MEDS ORDERED: BENZOCAINE/MENTHOL (CHLORASEPTIC ) LOZENGE MM PRN (00:49)
[2023-05-01] MEDS ORDERED: BENZONATATE 200 MG CAPSULE PO PRN (00:49)
[2023-05-01] MEDS ORDERED: MAG HYDROX/AL HYDROX/SIMETH 30 ML UNIT-DOSE CUP PO PRN (00:49)
[2023-05-01] MEDS ORDERED: ONDANSETRON *ODT* 4 MG TABLET SL PRN (00:49)
[2023-05-01] MEDS ORDERED: ACETAMINOPHEN 325 MG TABLET (FP) PO PRN (00:49)
[2023-05-01] MEDS ORDERED: NALOXONE HCL 0.4 MG/ML VIAL IM PRN (00:49)
[2023-05-01] MEDS ORDERED: IBUPROFEN 400 MG TABLET (FP) PO PRN (00:49)
[2023-05-01] MEDS ORDERED: DICYCLOMINE HCL 10 MG CAPSULE PO PRN (00:49)
[2023-05-01] MEDS ORDERED: POLYETHYLENE GLYCOL (HEALTHYLAX) 3350 17 GM PACKET PO PRN (00:49)
[2023-05-01] MEDS ORDERED: NALOXONE HCL (KLOXXADO) 8 MG SPRAY NS PRN (00:49)
[2023-05-01] MEDS ORDERED: guaiFENesin 600 MG TABLET.ER (FP) PO PRN (00:49)
[2023-05-01] MEDS ORDERED: BISMUTH SUBSALICYLATE 524 MG/30 ML PO PRN (00:49)
[2023-05-01] MEDS ORDERED: LOPERAMIDE HCL 2 MG CAPSULE PO PRN (00:49)
[2023-05-01] MEDS ORDERED: MAGNESIUM HYDROX 2400MG/30ML ORAL SUSPENSION 30 ML CUP PO PRN (00:49)
[2023-05-01] MEDS: METHOCARBAMOL 500 MG TABLET PO PRN ×2 (04:40→17:23)
[2023-05-01] MEDS: chlordiazePOXIDE HCL 25 MG CAPSULE PO SCH ×4 (04:40→22:24)
[2023-05-01] MEDS: NICOTINE 14 MG/24 HOURS TOPICAL PATCH TD SCH (10:13)
[2023-05-01] MEDS: PRENATAL VITAMINS W/ FOLIC ACID TABLET (FP) PO SCH (10:13)
[2023-05-01] MEDS ORDERED: BUPRENORPHINE HCL 150 MCG FILM BC ONE (11:00)
[2023-05-01] MEDS: IBUPROFEN 600 MG TABLET (FP) PO PRN (17:23)
[2023-05-01] MEDS: chlordiazePOXIDE HCL 25 MG CAPSULE PO PRN (19:38)
[2023-05-01] MEDS: MELATONIN 5 MG TABLETS PO SCH (22:22)
[2023-05-01] MEDS: THIAMINE HCL 100 MG TABLET (FP) PO SCH (22:22)
[2023-05-01] MEDS: BUPRENORPHINE HCL 150 MCG FILM BC SCH (22:25)
[2023-05-02] MEDS: chlordiazePOXIDE HCL 25 MG CAPSULE PO PRN ×2 (02:43→20:18)
[2023-05-02] MEDS: METHOCARBAMOL 500 MG TABLET PO PRN ×3 (02:48→17:30)
[2023-05-02] MEDS: chlordiazePOXIDE HCL 25 MG CAPSULE PO SCH ×4 (05:43→22:24)
[2023-05-02] MEDS: IBUPROFEN 600 MG TABLET (FP) PO PRN ×2 (08:22→22:22)
[2023-05-02] MEDS: PRENATAL VITAMINS W/ FOLIC ACID TABLET (FP) PO SCH (10:45)
[2023-05-02] MEDS: NICOTINE 14 MG/24 HOURS TOPICAL PATCH TD SCH (10:46)
[2023-05-02] MEDS: BUPRENORPHINE HCL 150 MCG FILM BC SCH ×2 (10:46→22:23)
[2023-05-02] MEDS: LIDOCAINE 5% TOPICAL PATCH TP SCH (17:51)
[2023-05-02] MEDS: THIAMINE HCL 100 MG TABLET (FP) PO SCH (22:22)
[2023-05-02] MEDS: GABAPENTIN 300 MG CAPSULE PO SCH (22:22)
[2023-05-02] MEDS: MELATONIN 5 MG TABLETS PO SCH (22:22)
[2023-05-02] MEDS: LIDOCAINE PATCH REMOVAL MC SCH (22:25)
[2023-05-03] MEDS ORDERED: chlordiazePOXIDE HCL 10 MG CAPSULE PO PRN
[2023-05-03] MEDS: chlordiazePOXIDE HCL 10 MG CAPSULE PO SCH ×4 (05:10→23:01)
[2023-05-03] MEDS: GABAPENTIN 300 MG CAPSULE PO SCH ×2 (05:10→13:03)
[2023-05-03] MEDS: METHOCARBAMOL 500 MG TABLET PO PRN ×2 (05:12→10:51)
[2023-05-03] MEDS: NICOTINE 10 MG CARTRIDGE (INHALER) IH PRN ×2 (07:03→14:08)
[2023-05-03] MEDS: LIDOCAINE 5% TOPICAL PATCH TP SCH (10:50)
[2023-05-03] MEDS: BUPRENORPHINE HCL 150 MCG FILM BC SCH ×2 (10:50→22:12)
[2023-05-03] MEDS: NICOTINE 14 MG/24 HOURS TOPICAL PATCH TD SCH (10:50)
[2023-05-03] MEDS: IBUPROFEN 600 MG TABLET (FP) PO PRN ×2 (10:51→17:35)
[2023-05-03] MEDS: PRENATAL VITAMINS W/ FOLIC ACID TABLET (FP) PO SCH (10:59)
[2023-05-03] MEDS: AMMONIUM LACTATE 12% LOTION 225 GM BOTTLE TP PRN (14:59)
[2023-05-03] MEDS: PRAZOSIN HCL 1 MG CAPSULE PO SCH (22:18)
[2023-05-03] MEDS: THIAMINE HCL 100 MG TABLET (FP) PO SCH (22:18)
[2023-05-03] MEDS: GABAPENTIN 400 MG CAPSULE PO SCH (22:18)
[2023-05-03] MEDS: LIDOCAINE PATCH REMOVAL MC SCH (23:01)
[2023-05-03] MEDS: MELATONIN 5 MG TABLETS PO SCH (23:05)
[2023-05-04] MEDS: METHOCARBAMOL 500 MG TABLET PO PRN (02:36)
[2023-05-04] MEDS: GABAPENTIN 400 MG CAPSULE PO SCH ×3 (06:08→22:13)
[2023-05-04] MEDS: chlordiazePOXIDE HCL 10 MG CAPSULE PO SCH ×2 (06:08→17:28)
[2023-05-04] MEDS: IBUPROFEN 600 MG TABLET (FP) PO PRN (07:00)
[2023-05-04] MEDS: NICOTINE 10 MG CARTRIDGE (INHALER) IH PRN ×2 (07:12→21:20)
[2023-05-04 09:14] LABS: BASO % 1.1 % (0-2.0); EOS % 3.1 % (0-4.5); HEMATOCRIT 35.9 % (32.4-45.2); HEMOGLOBIN 11.4 GM/dL (10.7-15.3); LYMPH % 32.4 % (8-40); MCH 28.8 pg (25.7-33.7); MCHC 31.7 g/dl (32.0-36.0); MEAN CELL VOLUME 90.9 fl (80-96); MEAN PLT VOLUME 9.2 fl (7.5-11.1); MONO % 7.5 % (3.8-10.2); NEUT % 55.9 % (42.8-82.8); PLATELET COUNT 306 10^3/uL (134-434); RBC 3.94 M/mm3 (3.60-5.2); RDW 16.1 % (11.6-15.6); WHITE BLOOD COUNT 5.3 K/mm3 (4.0-10.0)
[2023-05-04 09:18] LABS: POTASSIUM 4.4 mmol/L (3.5-5.1)
[2023-05-04 09:33] LABS: ALBUMIN 3.5 g/dl (3.4-5.0); BLOOD UREA NITROGEN 15.7 mg/dL (7-18)
[2023-05-04 09:36] LABS: CREATININE 0.6 mg/dL (0.55-1.3)
[2023-05-04] MEDS: BUPRENORPHINE HCL 150 MCG FILM BC SCH ×2 (10:42→22:13)
[2023-05-04] MEDS ORDERED: chlordiazePOXIDE HCL 10 MG CAPSULE PO ONE (10:45)
[2023-05-04] MEDS ORDERED: LIDOCAINE 5% TOPICAL PATCH TP SCH (10:56)
[2023-05-04] MEDS: AMMONIUM LACTATE 12% LOTION 225 GM BOTTLE TP PRN (11:02)
[2023-05-04] MEDS: PRENATAL VITAMINS W/ FOLIC ACID TABLET (FP) PO SCH (11:53)
[2023-05-04] MEDS: NICOTINE 14 MG/24 HOURS TOPICAL PATCH TD SCH (11:54)
[2023-05-04] MEDS: LIDOCAINE 5% TOPICAL PATCH TP SCH (12:01)
[2023-05-04] MEDS ORDERED: BACITRACIN ZINC 15 GM TUBE TOPICAL OINTMENT TP SCH (22:00)
[2023-05-04] MEDS: PRAZOSIN HCL 1 MG CAPSULE PO SCH (22:12)
[2023-05-04] MEDS: THIAMINE HCL 100 MG TABLET (FP) PO SCH (22:13)
[2023-05-04] MEDS: MELATONIN 5 MG TABLETS PO SCH (22:13)
[2023-05-04] MEDS: LIDOCAINE PATCH REMOVAL MC SCH (23:31)
[2023-05-05] MEDS: METHOCARBAMOL 500 MG TABLET PO PRN (03:42)
[2023-05-05] MEDS: IBUPROFEN 600 MG TABLET (FP) PO PRN (03:42)
[2023-05-05] MEDS: NICOTINE 10 MG CARTRIDGE (INHALER) IH PRN (03:45)
[2023-05-05] MEDS: AMMONIUM LACTATE 12% LOTION 225 GM BOTTLE TP PRN (04:36)
[2023-05-05] MEDS ORDERED: chlordiazePOXIDE HCL 10 MG CAPSULE PO ONE (05:00)
[2023-05-05] MEDS: GABAPENTIN 400 MG CAPSULE PO SCH (05:54)
[2023-05-05 09:44] VITALS: BP 110/75; PULSE 75; RESP 18; TEMP 96.9
== END 2023-05-05 10:52 | disposition home or self-care (01) | DRG 774 ==
LOC: YASAS 21:18 → Y6N 05-01 04:18
PROVIDERS: ADMIT Allergy & Immunology; ATTEND Allergy & Immunology
PROC: HZ2ZZZZ Detoxification Services for Substance Abuse Treatment (ICD-10-PCS; principal; 2023-05-01)
DX: F10.230 Alcohol dependence with withdrawal, uncomplicated (principal); F14.20 Cocaine dependence, uncomplicated; F12.20 Cannabis dependence, uncomplicated; F17.213 Nicotine dependence, cigarettes, with withdrawal; F31.9 Bipolar disorder, unspecified; F43.10 Post-traumatic stress disorder, unspecified; F39 Unspecified mood [affective] disorder; I25.2 Old myocardial infarction; J44.9 Chronic obstructive pulmonary disease, unspecified; M54.6 Pain in thoracic spine; M54.50 Low back pain, unspecified; G89.29 Other chronic pain; Z91.410 Personal history of adult physical and sexual abuse; Z87.09 Personal history of other diseases of the respiratory system; Z88.6 Allergy status to analgesic agent
CPT/HCPCS: 36415; 80053; 81025; 85025; 86780; 87635